=== PATIENT | male | born 1965 | race Caucasian/White ===

== ENCOUNTER → 2016-06-26 | Outpatient (CLI) | payer OTHER ==
[~2016-06-26] MED LIST: ABL/5 PO; ACET325T96 PO; ALUM-30 PO; CARB1SOL8 OTB; CLC100X PO; CYAN500T13 PO; DLSUDL60 PO; FEXO1TAB46 PO; FLUT0.0529 NAE; LOPE-5 PO; MAGNSUS5 PO; MIRT15TA3 PO; MONT1TAB3 PO; MULT-412 PO; NEOMOIN3 TOP; POLY335025 PO; SERT1TAB68 PO; SIMV40TA4 PO; WHEAPOW13 PO; [UNRECOGNIZED DRUG - OTHER] OR; [UNRECOGNIZED DRUG - SUPPLY] TOP
[2016-06-26 18:12] LABS: BASO % 0.4 %; BASO ABS # 0.03 K/uL (0-0.2); COMPLETE YES; IG% 0.3 %; LYMPH % 17.5 %; LYMPH ABS # 1.27 K/uL (1.2-3.4); MEAN CELL VOLUME 97.1 fL (80-100); MEAN CORPUSCULAR HEMOGLOBIN 30.7 pg (25-34); MEAN CORPUSCULAR HGB CONC 31.6 g/dl (32-36); MEAN PLATELET VOLUME 10.9 fL (7.4-10.4); MONO % 5.4 %; NEUT % 75.4 %; PLATELET COUNT 275 K/uL (130-400); RED BLOOD COUNT 4.43 M/uL (4.7-6.1); WHITE BLOOD COUNT 7.26 K/uL (4.8-10.8)
[2016-06-26 18:49] LABS: BLOOD UREA NITROGEN 12 mg/dl (7-18); CARBON DIOXIDE 28 mmol/L (21-32); CHLORIDE 106 mmol/L (98-107); GLUCOSE 106 mg/dl (70-99); POTASSIUM 4.5 mmol/L (3.5-5.1); SODIUM 141 mmol/L (136-145)
[2016-06-26 18:53] LABS: CHOLESTEROL 198 mg/dl (0-200); CHOLESTEROL/HDL RATIO 3.3; HDL CHOLESTEROL 60 mg/dl; LDL CHOLESTEROL CALCULATED 116 mg/dl; TRIGLYCERIDES 112 mg/dl (0-150); VERY LOW DENSITY LIPOPROT CALC 22 mg/dl
== END | disposition home or self-care (01) ==
LOC: C.LABPVFM 15:12
PROVIDERS: ATTEND Nurse Practitioner
DX: E78.5 Hyperlipidemia, unspecified (principal); D53.1 Other megaloblastic anemias, not elsewhere classified

== ENCOUNTER → 2016-07-10 | Outpatient (CLI) | payer OTHER | END | disposition home or self-care (01) | LOC: C.LABBFT 09:57 | PROVIDERS: ATTEND Nurse Practitioner | DX: D53.1 Other megaloblastic anemias, not elsewhere classified (principal) ==

== ENCOUNTER → 2017-07-20 | Outpatient (CLI) | payer OTHER ==
[~2017-07-20] MED LIST changes: +ACET-1693 PO; -ACET325T96 PO
[2017-07-20 17:30] LABS: BASO % 1.1 %; BASO ABS # 0.07 K/uL (0-0.2); EOS % 1.3 %; EOS ABS # 0.08 K/uL (0-0.5); HEMATOCRIT 38.8 % (42-52); HEMOGLOBIN 12.4 g/dL (14.0-18.0); IG# 0.02 K/uL (0.00-0.02); LYMPH % 14.1 %; MEAN CELL VOLUME 91.7 fL (80-100); MEAN CORPUSCULAR HEMOGLOBIN 29.3 pg (25-34); MEAN PLATELET VOLUME 10.5 fL (7.4-10.4); MONO % 8.3 %; MONO ABS # 0.53 K/uL (0.11-0.59); NEUT % 74.9 %; PLATELET COUNT 242 K/uL (130-400); RED CELL DISTRIBUTION WIDTH CV 15.5 % (11.5-14.5); RED CELL DISTRIBUTION WIDTH SD 52.2 fL (36.4-46.3)
[2017-07-20 17:49] LABS: BLOOD UREA NITROGEN 11 mg/dl (7-18); CALCIUM 8.4 mg/dl (8.5-10.1); CARBON DIOXIDE 29 mmol/L (21-32); CHOLESTEROL 169 mg/dl (0-200); CREATININE 1.12 mg/dl (0.60-1.40); GLUCOSE 92 mg/dl (70-99); LDL CHOLESTEROL CALCULATED 94 mg/dl; POTASSIUM 4.2 mmol/L (3.5-5.1); SODIUM 141 mmol/L (136-145)
== END | disposition home or self-care (01) ==
LOC: C.LABPVFM 13:51
PROVIDERS: ATTEND Nurse Practitioner
DX: D53.1 Other megaloblastic anemias, not elsewhere classified (principal); E78.5 Hyperlipidemia, unspecified

== ENCOUNTER 2017-10-15 14:13 | Emergency (ER) | payer OTHER ==
[~2017-10-15] VITALS: Ht 167.6 cm; Wt 100.0 kg
[2017-10-15 14:15] VITALS: TEMP 36.8; Ht 167.6 cm; Wt 100.0 kg
[2017-10-15] MEDS ORDERED: ACET-1693 PO (15:08)
[2017-10-15] MEDS ORDERED: POLY335019 PO (15:08)
[2017-10-15] MEDS ORDERED: WHEAPOW13 PO (15:08)
[2017-10-15] MEDS ORDERED: MULT-506 PO (15:08)
[2017-10-15] MEDS ORDERED: CYAN500T PO (15:08)
[2017-10-15] MEDS ORDERED: MOMLX PO (15:08)
[2017-10-15] MEDS ORDERED: DOCU-94 PO (15:08)
[2017-10-15] MEDS ORDERED: LOPE1TAB25 PO (15:08)
[2017-10-15] MEDS ORDERED: MIRT15TA3 PO (15:08)
[2017-10-15] MEDS ORDERED: MONT1TAB3 PO (15:08)
[2017-10-15] MEDS ORDERED: FLUT0.15 NAE (15:08)
[2017-10-15] MEDS ORDERED: SERT-234 PO (15:08)
[2017-10-15] MEDS ORDERED: EYELPAD2 (15:08)
[2017-10-15] MEDS ORDERED: NEOM-25 TOP (15:08)
[2017-10-15] MEDS ORDERED: ATOR-24 PO (15:08)
[2017-10-15] MEDS ORDERED: CARB1SOL8 OTB (15:08)
[2017-10-15] MEDS ORDERED: DEXT30LI4 PO (15:08)
[2017-10-15] MEDS ORDERED: ALUM1SUS57 PO (15:08)
[2017-10-15] MEDS ORDERED: [UNRECOGNIZED DRUG - CODE] PO (15:08)
[2017-10-15] MEDS ORDERED: ABL/5 PO (15:08)
[2017-10-15] MEDS ORDERED: FEXO1TAB46 PO (15:08)
--- NOTE | 2017-10-15 15:10 | DIAGNOSTIC IMAGING REPORT ---
CHEST AND ABDOMEN 2 VIEWS HISTORY: Generalized abdominal pain. COMPARISON: Abdomen and pelvis CT 10/05/2015. [facility] 05/19/2013. FINDINGS: The lungs are clear. The cardiomediastinal silhouette is within normal limits. There is no pneumoperitoneum or pneumatosis. The bowel gas pattern is unremarkable. No evidence for bowel obstruction. No renal or ureteral calculi. Moderate well-formed stool seen within the colon rectum. This has progressed. IMPRESSION: No acute cardiopulmonary process. No evidence for bowel obstruction. Moderate fecal retention. Electronically signed by: Benjamín Caldwell M.D. 10/15/2017 3:08 PM Dictated Date/Time: 10/15/2017 3:06 PM
[2017-10-15 16:55] LABS: BASO % 0.6 %; BASO ABS # 0.05 K/uL (0-0.2); EOS % 0.7 %; EOS ABS # 0.06 K/uL (0-0.5); HEMATOCRIT 43.2 % (42-52); HEMOGLOBIN 13.7 g/dL (14.0-18.0); IG# 0.02 K/uL (0.00-0.02); LYMPH ABS # 0.99 K/uL (1.2-3.4); MEAN CELL VOLUME 93.1 fL (80-100); MEAN CORPUSCULAR HEMOGLOBIN 29.5 pg (25-34); MEAN CORPUSCULAR HGB CONC 31.7 g/dl (32-36); MEAN PLATELET VOLUME 10.7 fL (7.4-10.4); MONO % 5.7 %; MONO ABS # 0.47 K/uL (0.11-0.59); NEUT % 80.8 %; NEUT ABS # 6.68 K/uL (1.4-6.5); PLATELET COUNT 248 K/uL (130-400); RED CELL DISTRIBUTION WIDTH CV 15.1 % (11.5-14.5); RED CELL DISTRIBUTION WIDTH SD 51.1 fL (36.4-46.3); WHITE BLOOD COUNT 8.27 K/uL (4.8-10.8)
[2017-10-15 17:19] LABS: ALBUMIN 3.6 gm/dl (3.4-5.0); CALCIUM 9.2 mg/dl (8.5-10.1); CREATININE 1.22 mg/dl (0.60-1.40); POTASSIUM 4.3 mmol/L (3.5-5.1); TOTAL PROTEIN 8.1 gm/dl (6.4-8.2)
[2017-10-15 18:25] VITALS: BP 126/81; PULSE 81; O2SAT 98
[2017-10-15] MEDS ORDERED: MAGNESIUM CITRATE 296 ML/BTL PO ONE (18:45)
--- NOTE | 2017-10-16 01:29 | EMERGENCY ROOM VISIT NOTE ---
History First contact with patient: 14:13 Chief Complaint: ABDOMINAL PAIN Stated Complaint: ABDOMINAL PAIN Nursing Triage Summary: patient to ED from [facility] with senior pastor, report intermittent abd pain x2 weeks , hx constipation patient denies pain at time of triage History of Present Illness The patient is a 51 year old male who presents to the Emergency Room with complaints of abdominal pain for the past 2 weeks. The patient is a [facility] patient. His caregiver reports that he has a history of significant constipation. He takes multiple medicines for his constipation. He has been complaining of discomfort for the past few weeks. His pain seemed to escalate today, and they elected to bring the patient to the emergency department for further evaluation. The patient has not spiked a fever. They deny any diarrhea , change in urinary patterns or vomiting. On my exam, the patient denies any belly pain. Review of Systems Review of systems was limited given limited intellectual ability with Down syndrome Past Medical/Surgical History Medical Problems: (1) Down syndrome Family History Unknown Social History Smoking Status: Never Smoker Alcohol Use: none Drug Use: none Marital Status: single Housing Status: other Occupation Status: disabled Current/Historical Medications Scheduled Aripiprazole (Abilify), 5 MG PO DAILY Atorvastatin (Lipitor), 40 MG PO HS Carbamide Peroxide (Otic) (Debrox), 3 DROPS OTB 3XWK Cyanocobalamin (Vitamin B-12), 500 MCG PO DAILY Docusate Sodium (Colace), 200 MG PO AMPM Eyelid Cleansers (Ocusoft Lid Scrub), 1 APPLN UNKNOWN QAM Fexofenadine Hcl (Nelida), 180 MG PO DAILY Fluticasone Propionate (Nasal) (Flonase Allergy Relief), 2 SPRAYS ABHILASH DAILY Loperamide Hcl (Loperamide Hcl), 1 DOSE PO UD Magnesium Hydroxide (Milk of Magnesia), 1 DOSE PO UD Mirtazapine (Remeron), 15 MG PO HS Montelukast Sodium (Singulair), 10 MG PO HS Multivitamin (Multivitamin), 1 TAB PO DAILY Polyethylene Glycol 3350 (Miralax), 17 GM PO DAILY Sertraline (Zoloft), 100 MG PO DAILY Sodium Fluoride (Dental) (Prevident 5000 Plus), 1 APPLN PO BID Wheat Dextrin (Benefiber), 2 TSP PO DAILY Scheduled PRN Acetaminophen Tab (Tylenol), 650 MG PO Q6 PRN for Pain or Fever Alum & Mag Hydrox-Simethicone (Mylanta Maximum Strength 400-400-40 mg/5Ml), 30 ML PO Q4 PRN for UPSET STOMACH/VOMITING Dextromethorphan Polistirex (Delsym), 10 ML PO Q12 PRN for Cough Bgacruif-Hdszsvyyxl-Frgsipxtn (Triple Antibiotic), 1 APPLN TOP BID PRN for INFECTION Physical Exam Vital Signs Date Time Temp Pulse Resp B/P (MAP) Pulse Ox O2 Delivery O2 Flow Rate FiO2 10/15/17 18:25 81 18 126/81 98 Room Air 10/15/17 16:28 91 18 136/77 96 Room Air 10/15/17 14:15 36.8 117 18 175/99 97 Room Air Physical Exam CONSTITUTIONAL: Healthy and well nourished. Patient answers questions with yes or no answers. He does not appear in any acute distress. HEENT: Normocephalic, atraumatic. Pupils equal, round and reactive. No scleral icterus or conjunctival injection/pallor. NECK: Full active range of motion without discomfort. RESPIRATORY: Clear to auscultation bilaterally with no wheezing, crackles, rhonchi or stridor. CARDIOVASCULAR: Regular rate and rhythm with no murmurs, rubs or gallops. GASTROINTESTINAL: Bowel sounds present in all quadrants. The patient initially refused to lay on the bed. With the patient sitting in a chair, he does not have any obvious tenderness to palpation or rigidity. Negative CVA tenderness. MUSCULOSKELETAL: Full range of motion of all joints without discomfort. INTEGUMENTARY: No rash or other significant dermatologic conditions noted. NEUROLOGIC: No focal neurologic deficits noted. Medical Decision & Procedures ER Provider Diagnostic Interpretation: My interpretation of an abdomen obstruction series with a PA chest view does not show any obstructive pattern, free air or basilar lung consolidations. Moderate constipation is noted. Radiologist report is as follows: CHEST AND ABDOMEN 2 VIEWS HISTORY: Generalized abdominal pain. COMPARISON: Abdomen and pelvis CT 10/05/2015. KUB 05/19/2013. FINDINGS: The lungs are clear. The cardiomediastinal silhouette is within normal limits. There is no pneumoperitoneum or pneumatosis. The bowel gas pattern is unremarkable. No evidence for bowel obstruction. No renal or ureteral calculi. Moderate well-formed stool seen within the colon rectum. This has progressed. IMPRESSION: No acute cardiopulmonary process. No evidence for bowel obstruction. Moderate fecal retention. Laboratory Results 10/15/17 16:24 Red Blood Count 4.64, Mean Corpuscular Volume 93.1, Mean Corpuscular Hemoglobin 29.5, Mean Corpuscular Hemoglobin Concent 31.7, Mean Platelet Volume 10.7, Neutrophils (%) (Auto) 80.8, Lymphocytes (%) (Auto) 12.0, Monocytes (%) (Auto) 5.7, Eosinophils (%) (Auto) 0.7, Basophils (%) (Auto) 0.6, Neutrophils # (Auto) 6.68, Lymphocytes # (Auto) 0.99, Monocytes # (Auto) 0.47, Eosinophils # (Auto) 0.06, Basophils # (Auto) 0.05 10/15/17 16:24 Test 10/15/17 16:24 White Blood Count 8.27 K/uL (4.8-10.8) Red Blood Count 4.64 M/uL (4.7-6.1) Hemoglobin 13.7 g/dL (14.0-18.0) Hematocrit 43.2 % (42-52) Mean Corpuscular Volume 93.1 fL (80-100) Mean Corpuscular Hemoglobin 29.5 pg (25-34) Mean Corpuscular Hemoglobin Concent 31.7 g/dl (32-36) Platelet Count 248 K/uL (130-400) Mean Platelet Volume 10.7 fL (7.4-10.4) Neutrophils (%) (Auto) 80.8 % Lymphocytes (%) (Auto) 12.0 % Monocytes (%) (Auto) 5.7 % Eosinophils (%) (Auto) 0.7 % Basophils (%) (Auto) 0.6 % Neutrophils # (Auto) 6.68 K/uL (1.4-6.5) Lymphocytes # (Auto) 0.99 K/uL (1.2-3.4) Monocytes # (Auto) 0.47 K/uL (0.11-0.59) Eosinophils # (Auto) 0.06 K/uL (0-0.5) Basophils # (Auto) 0.05 K/uL (0-0.2) RDW Standard Deviation 51.1 fL (36.4-46.3) RDW Coefficient of Variation 15.1 % (11.5-14.5) Immature Granulocyte % (Auto) 0.2 % Immature Granulocyte # (Auto) 0.02 K/uL (0.00-0.02) Anion Gap 7.0 mmol/L (3-11) Est Creatinine Clear Calc Drug Dose 80.2 ml/min Estimated GFR () 79.6 Estimated GFR (Non- 68.7 BUN/Creatinine Ratio 12.2 (10-20) Calcium Level 9.2 mg/dl (8.5-10.1) Total Bilirubin 0.3 mg/dl (0.2-1) Direct Bilirubin 0.1 mg/dl (0-0.2) Aspartate Amino Transf (AST/SGOT) 21 U/L (15-37) Alanine Aminotransferase (ALT/SGPT) 26 U/L (12-78) Alkaline Phosphatase 110 U/L (45-117) Total Protein 8.1 gm/dl (6.4-8.2) Albumin 3.6 gm/dl (3.4-5.0) Lipase 164 U/L (73-393) The above labs were reviewed and were grossly normal. Medications Administered Medications (Trade) Dose Ordered Sig/[place] Route Start Time Stop Time Status Last Admin Dose Admin Magnesium Citrate (Citrate Of Magnesia Soln) 296 ml NOW ONCE PO 10/15/17 18:45 10/15/17 18:46 DC 10/15/17 18:58 296 ML ED Course Patient history and physical exam were performed. Nurse's notes were reviewed. Vital signs were reviewed. The patient was initially tachycardic, but does not appear in any acute distress. He is afebrile. The patient initially refused to lay on the bed for exam. Initial exam in a seated position did not show any obvious tenderness to palpation of the abdomen. I did recommend x-ray of the abdomen for suspected constipation. X-rays does show moderate fecal retention without any obstructive pattern, free air or acute cardiopulmonary etiologies. After discussing the case with Dr. Mendosa, ED attending physician, we elected to check some labs since the patient was tachycardic. Labs were drawn, reviewed and were normal. The patient denied any pain on reexamination. It is also noted that his heart rate did trend downward while in the emergency department. I did recommend use of magnesium citrate to purge the bowel. I then suggested follow-up with the patient's PCP as he is on multiple medications for constipation. I recommended return to the emergency department for any developing vomiting, fever, rectal bleeding or other concerns. The caregiver voiced understanding of all discharge instructions, and was happy with plan of care. Medical Decision As indicated in previous section, the patient does have a history of constipation, and is on multiple medications. His x-rays does show moderate fecal retention. Laboratory studies are not suggestive of pancreatitis, cholecystitis or hepatitis. X-rays do not show evidence for obstruction or basilar lung consolidations. The patient's abdominal exam, although limited secondary to patient refusal, does not show any significant findings. I do not suspect a surgical abdomen. Medication Reconcilliation Current Medication List: was personally reviewed by me Blood Pressure Screening Patient's blood pressure: Normal blood pressure Impression Primary Impression: Abdominal pain Additional Impression: Constipation Departure Information Dispostion Home / Self-Care Condition FAIR Forms Call Back Authorization, HOME CARE DOCUMENTATION FORM, IMPORTANT VISIT INFORMATION Patient Instructions [facility] Additional Instructions Try magnesium citrate to purge bowel. This will usually cause a bowel movement within 4-6 hours. Follow-up with your family doctor as needed for further constipation management. Return to the emergency department for any progressively worsening pain, vomiting or developing fever. Problem Qualifiers Primary Impression: Abdominal pain Abdominal location: generalized Qualified Codes: R10.84 - Generalized abdominal pain Additional Impression: Constipation Constipation type: unspecified constipation type Qualified Codes: K59.00 - Constipation, unspecified
== END 2017-10-15 18:50 | disposition home or self-care (01) ==
LOC: EDBD 14:13 → C.EDB 14:14
DX: K59.00 Constipation, unspecified (principal); Q90.9 Down syndrome, unspecified; Z79.899 Other long term (current) drug therapy

== ENCOUNTER 2023-07-13 20:43 | Inpatient (IN) ==
--- NOTE | 2023-07-13 21:57 | Emergency Department Note ---
History of Present Illness General Chief complaint: Foot Injury/Pain Stated complaint: L FOOT SWOLLEN Time Seen by Provider: 07/13/23 21:29 History of Present Illness Maximum Pain Intensity: 2 This is a 57-year-old male that presents to the emergency department via private vehicle accompanied by supervisor rice milling with complaints of "left foot swollen". Much of the history is provided by supervisor rice milling at bedside. She notes that the patient has been treated for left toe cellulitis over the past several days. He has been on amoxicillin/clavulanate since July 09 per review of record that is accompanying the patient. Despite this, today it was noted that the patient's left lower extremity began with edema as well as erythema. There was concern therefore prompting arrival here today. He has been compliant with the medication. Patient notes overall minimal discomfort. Current pain 04/11. No calf pain. No fevers or chills. No chest pain or shortness of breath. I did call the patient's guardian which is the patient's sister after obtaining verbal consent from the patient. Phone number [phone]. I spoke with her at 9:43 PM on 07/13/2023. I reviewed plan of care. We are in agreement to proceed. Home Medications Medication Instructions Recorded Confirmed Type aripiprazole 5 mg tablet (Abilify) 5 mg PO PM 11/19/18 07/16/23 History sertraline 100 mg tablet 100 mg PO QAM 11/19/18 07/16/23 History cyanocobalamin (vitamin B-12) 500 500 mcg PO QAM #30 tabs 08/19/19 07/16/23 Rx mcg tablet docusate sodium 100 mg capsule 100 mg PO BID PRN constipation #30 08/19/19 07/16/23 Rx (Colace) caps magnesium hydroxide 400 mg/5 mL 30 ml PO .COMPLEX PRN constipation 08/19/19 07/16/23 Rx oral suspension (Milk of Magnesia) #118 mL carbamide peroxide 6.5 % ear drops 3 drops OTB [id number] 07/04/20 07/16/23 History (Debrox) aluminum-mag hydroxide-simethicone 30 ml PO Q4 PRN antiemetic 04/22/21 07/16/23 History 200 mg-200 mg-20 mg/5 mL oral susp melatonin 3 mg tablet 6 mg PO HS 04/22/21 07/16/23 History mirtazapine 15 mg tablet 15 mg PO HS 04/22/21 07/16/23 History ibuprofen 200 mg tablet (IBU-200) 400 mg (2 x 200 mg) PO Q8H PRN 03/31/22 07/16/23 Rx pain 5 days #20 tabs mineral oil See Rx Instructions miscellaneous 03/31/22 07/16/23 Rx .COMPLEX #1 btl sodium chloride 0.65 % nasal spray 2 spray intranasal Q4H PRN dry 07/31/22 07/16/23 Rx aerosol (Saline Nasal Mist) nasal passages #44 mL acetaminophen 325 mg tablet 650 mg PO PRN PRN pain 09/05/22 07/16/23 History (Tylenol) eyelid cleanser combination 5 1 pad topical DIRECTED 09/05/22 07/16/23 History (OcuSoft Lid Scrub topical pads) ketoconazole 2 % shampoo 1 applic topical DIRECTED PRN 09/05/22 07/16/23 History NEEDED lanolin alcohols-mineral 1 applic topical DAILY 09/05/22 07/16/23 History oil-w.petrolatum-ceresin topical cream (Eucerin topical cream) loperamide 2 mg capsule 2 mg PO Q6H PRN Diarrhea 09/05/22 07/16/23 History (Anti-Diarrheal (loperamide)) calcium carbonate (Antacid Calcium) 215 mg PO BID #60 tabs 09/09/22 07/16/23 Rx cholecalciferol (vitamin D3) 125 125 mcg PO DAILY #90 caps 09/19/22 07/16/23 Rx mcg (5,000 unit) capsule emollient combination no.117 1 applic topical DAILY PRN Itching 09/19/22 07/16/23 History (Eucerin Advanced Repair Hand topical cream) walker with hand brakes and a seat #1 ea 10/29/22 07/10/23 Rx ciclopirox 0.77 % topical cream 1 applic topical BID PRN rash #90 12/23/22 07/16/23 Rx grams sennosides 8.6 mg tablet (Senokot) 8.6 mg PO HS PRN constipation #20 01/12/23 07/16/23 Rx tabs atorvastatin 40 mg tablet 40 mg PO HS #30 tabs 02/05/23 07/16/23 Rx montelukast 10 mg tablet 10 mg PO HS #30 tabs 02/05/23 07/16/23 Rx fluticasone propionate 50 2 spray intranasal QAM #16 grams 02/17/23 07/16/23 Rx mcg/actuation nasal spray,suspension (Flonase Allergy Relief) rewashable large blue chux pad #3 ea 02/20/23 07/10/23 Rx polyethylene glycol 3350 17 17 g PO BID #850 grams 03/04/23 07/16/23 Rx gram/dose oral powder multivitamin (Multiple Vitamins 1 tab PO QAM #30 tabs 04/30/23 07/16/23 Rx tablet) compression socks, large #4 ea 05/06/23 07/10/23 Rx benzonatate 200 mg capsule 200 mg PO BID PRN cough #20 caps 05/26/23 07/16/23 Rx neomycin 3.5 mg-polymyxin 10,000 1 drp ophthalmic (eye) BID #7.5 mL 05/26/23 07/16/23 Rx unit-hydrocort 10 mg/mL eye drop,susp testosterone enanthate 200 mg/mL 1,000 mg IM .BIMONTHLY 05/26/23 07/16/23 History intramuscular syringe dextromethorphan polistirex 30 10 ml PO Q12H PRN Cough 06/19/23 07/16/23 History mg/5 mL oral susp ext.release 12hr (Delsym 12 hour) fluoride (sodium) 1.1 % dental gel 1 applic dental DAILY 06/19/23 07/16/23 History hydrocodone 5 mg-acetaminophen 325 1 tab PO Q8H PRN Pain 06/19/23 07/16/23 History mg tablet fexofenadine 180 mg tablet 180 mg PO QAM #30 tabs 06/26/23 07/16/23 Rx Magic Mouthwash 300 mL mouthwash 5 ml mucous membrane .COMPLEX #300 07/10/23 07/16/23 Rx mL magnesium sulfate (bulk) 100 % See Rx Instructions topical BID 07/10/23 07/16/23 Rx crystals (Epsom Salt) #2,500 grams mupirocin 2 % topical ointment 1 applic EXT TID #22 grams 07/14/23 07/16/23 Rx sulfamethoxazole 800 1 tab PO BID #20 tabs 07/14/23 07/16/23 Rx mg-trimethoprim 160 mg tablet (Bactrim DS) Allergies Allergy/AdvReac Type Severity Reaction Status Date / Time pollen extracts Allergy Intermediate WATERY Verified 07/16/23 16:52 EYES, CONGESTION amantadine AdvReac Unknown Unknown Verified 07/16/23 16:52 fluoxetine [From Prozac] AdvReac Unknown Unknown Verified 07/16/23 16:52 Past Med/Surg History Problem List Cellulitis of left lower extremity (Acute) Choking due to food (regurgitated) Aphthous ulcer of mouth Infected nailbed of toe Ingrown left big toenail Moderate intellectual disabilities Viral URI with cough Blepharitis Localized swelling, mass and lump, left lower limb Edema of left lower extremity (Acute) Rash Hordeolum of right upper eyelid Trisomy 21, Down syndrome (Chronic) Patient will continue with medications for his chronic conditions which are overall stable at this time. No other recommendations at this time. No labs at this visit. Will do labs again in 4 months. 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) Constipation (Chronic) Allergic rhinitis (Chronic) Tinea corporis (Chronic) Groin pain Annual physical exam Vitamin D deficiency Skin irritation Cerumen impaction Abscess of buttock Lipoma of buttock Sebaceous cyst Conjunctivitis Acute sinusitis Neuropathy, lower extremity Calf pain Lower extremity edema Pain of right calf (Acute) Urinary incontinence Osteoporosis Low testosterone Congenital small testis Decreased stamina Knee pain Lumbar degenerative disc disease Compression fracture of T11 vertebra Medical History Colon cancer screening Congenital malformation of eyelid Asthma Vitamin B12 deficiency Adjustment disorder with depressed mood Down syndrome COVID-19 Surgical History History of wisdom tooth extraction No history of previous surgery Family History Other No significant family history Social History Smoking Status: Never smoker Second Hand Exposure: No; Do You Dip or Chew Tobacco: No; Hx Alcohol Use: No Hx Substance Use: No Preferred Language: Romansh Communication Ability: Effective Visual Impairment: No Limitations Hearing Ability: Normal 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 Repairer Required: No Beliefs That Will Affect Care: None marital status: Single Current Living Situation: Personal Care Facility Current Living Situation Comment: skills current occupational status: disabled How many Children do You have: 0 Feels Safe at Home: Yes Childhood Exposure to Second-Hand Smoke: No Diet: regular caffeine: Yes Dental Care, Regularly: Yes Physical Activity Frequency: Does not Exercise Seatbelt Use: always Sunscreen Use: Yes Sexual Activity: has never been active Assistive Devices: None Review of Systems A total of 10 systems reviewed and were otherwise negative Physical Exam Vital Signs Vital Signs - 24 hr 07/13/23 21:10 07/13/23 23:40 Temperature 36.7 C Temperature Source Temporal Artery Scan Pulse Rate 68 Pulse Rate [Finger] 81 Respiratory Rate 20 18 Blood Pressure 162/94 H Blood Pressure [Right Arm] 148/87 H Blood Pressure Mean 116 Blood Pressure Mean [Right Arm] 107 Blood Pressure Position [Right Arm] Sitting Pulse Oximetry 95 97 Oxygen Delivery Method Room Air Room Air Sepsis Recent Fever Within 48 Hours No Sepsis New/Unexplained Change in Mental Status No Sepsis Action Taken by Nursing No Action Required VITAL SIGNS - Vital signs and nursing notes were reviewed. Hypertensive, otherwise stable. GENERAL -57-year-old male appearing his stated age who is in no acute distress. Communicates well with provider and answers questions appropriately. SKIN -left lower extremity with erythema most pronounced at the left first toe with the nailbed of the left first toe having a scabbed appearance with a small amount of yellowish fluid. Erythema then tracks proximally to the dorsum aspect of the foot and pretibial soft tissues anteriorly. Please see photos above. HEAD - NC/AT. EYES - Sclera anicteric. NECK - No nuchal rigidity. LUNGS - Chest wall symmetric without accessory muscle use, intercostals retractions, or central cyanosis. Normal vesicular breath sounds CTA B/L. No wheezes, rales, or rhonchi appreciated. CARDIAC - RRR EXTREMITIES - No clubbing or peripheral cyanosis. Skin as above. Left dorsalis pedis pulse within normal limits. Patient able to plantarflex dorsiflex actively the left foot/ankle without abnormality. Cap refill of all toes within normal limits. +5/5 strength noted in UE/LE bilaterally. NEUROLOGIC -left lower extremity neurovascularly intact without deficit. Sensory intact to light touch throughout all toes and aspects of the left lower extremity. PSYCH -patient is alert, and answers all questions appropriately. Course Administered Medications Discontinued Medications Acetaminophen (Acetaminophen 325 Mg Tab) 650 mg PO Q4H PRN PRN Reason: pain/fever Stop: 08/13/23 01:40 Last Admin: 07/14/23 02:01 Dose: 650 mg Documented By: OMER Aripiprazole (Aripiprazole 5 Mg Tab) 5 mg PO PM JASIEL Stop: 08/13/23 20:59 Last Admin: 07/14/23 20:27 Dose: 5 mg Documented By: ANDREA Atorvastatin Calcium (Atorvastatin 40 Mg Tab) 40 mg PO HS [facility] Stop: 08/13/23 20:59 Last Admin: 07/14/23 20:21 Dose: 40 mg Documented By: ANDREA Calcium Carbonate (Calcium Carbonate 500 Mg Chewable Tab) 500 mg PO BID JASIEL Stop: 08/13/23 08:59 Last Admin: 07/15/23 07:55 Dose: 500 mg Documented By: Admin: 07/14/23 20:21 Dose: 500 mg Documented By: Admin: 07/14/23 07:58 Dose: 500 mg Documented By: JANAY Cyanocobalamin (Cyanocobalamin (B-12) 500 Mcg Tablet) [facility] Stop: 08/13/23 08:59 Last Admin: 07/15/23 07:53 Dose: 500 mcg Documented By: Admin: 07/14/23 10:31 Dose: 500 mcg Documented By: JANAY Fexofenadine HCl (Fexofenadine Hcl 180 Mg Tab) [facility] Stop: 08/13/23 08:59 Last Admin: 07/15/23 07:53 Dose: 180 mg Documented By: Admin: 07/14/23 07:59 Dose: 180 mg Documented By: JANAY Fluticasone Propionate (Fluticasone Propionate Na Spr 16 Gm Btl) 2 sprays [facility]ILASH [facility] Stop: 08/13/23 08:59 Last Admin: 07/15/23 07:54 Dose: 2 sprays Documented By: Admin: 07/14/23 08:00 Dose: 2 sprays Documented By: JANAY Cefepime HCl (Maxipime) 2,000 mg in 20 mls @ 5 mls/min IV NOW STA; Protocol Stop: 07/13/23 22:38 Last Admin: 07/13/23 22:47 Dose: 5 mls/min Documented By: ANIA Vancomycin HCl 1,750 mg/ (Sodium Chloride) 535 mls @ 200 mls/hr IV NOW ONE Stop: 07/14/23 01:15 Last Infusion: 07/14/23 02:19 Dose: Infused Documented By: Admin: 07/13/23 22:51 Dose: 200 mls/hr Documented By: ANIA Cefepime HCl 2,000 mg/ Syringe 20 mls @ 5 mls/min IV Q12H JASIEL; Protocol Stop: 07/21/23 09:59 Last Admin: 07/14/23 22:13 Dose: 5 mls/min Documented By: Admin: 07/14/23 10:31 Dose: 5 mls/min Documented By: JANAY Vancomycin HCl 1,000 mg/ (Sodium Chloride) 270 mls @ 200 mls/hr IV Q12H JASIEL Stop: 07/21/23 07:59 Last Admin: 07/15/23 08:04 Dose: Not Given Documented By: Infusion: 07/14/23 21:45 Dose: Infused Documented By: Admin: 07/14/23 20:21 Dose: 200 mls/hr Documented By: Infusion: 07/14/23 10:31 Dose: Infused Documented By: Infusion: 07/14/23 09:11 Dose: 200 mls/hr Documented By: Infusion: 07/14/23 08:08 Dose: 0 mls/hr Documented By: Admin: 07/14/23 07:53 Dose: 200 mls/hr Documented By: EW Melatonin (Melatonin 3 Mg Tab) 6 mg PO HS JASIEL Stop: 08/13/23 20:59 Last Admin: 07/14/23 20:27 Dose: 6 mg Documented By: CRH Mirtazapine (Mirtazapine Tab 15 Mg Tab) 15 mg PO HS JASIEL Stop: 08/13/23 20:59 Last Admin: 07/14/23 20:26 Dose: 15 mg Documented By: ANDREA Miscellaneous (Order Awaiting Action: Ciclopirox 0.77 % Cream) 1 each N/A QS [facility] Stop: 08/13/23 07:59 Last Admin: 07/15/23 07:55 Dose: Not Given Documented By: Admin: 07/14/23 23:54 Dose: Not Given Documented By: Admin: 07/14/23 16:39 Dose: Not Given Documented By: Admin: 07/14/23 08:00 Dose: Not Given Documented By: JANAY Montelukast Sodium (Montelukast Sodium 10 Mg Tablet) 10 mg PO HS [facility] Stop: 08/13/23 20:59 Last Admin: 07/14/23 20:21 Dose: 10 mg Documented By: ANDREA Multivitamins (Multivitamin Tab) 1 tab PO QAM [facility] Stop: 08/13/23 08:59 Last Admin: 07/15/23 07:54 Dose: 1 tab Documented By: Admin: 07/14/23 07:59 Dose: 1 tab Documented By: JANAY Mupirocin (Mupirocin 2% Oint 22 Gm Tube) 1 appln EXT TID [facility] Stop: 08/13/23 13:59 Last Admin: 07/15/23 07:55 Dose: 1 appln Documented By: Admin: 07/14/23 20:27 Dose: 1 appln Documented By: Admin: 07/14/23 14:39 Dose: 1 appln Documented By: JANAY Polyethylene Glycol (Polyethylene (Miralax) 17 Gm Pack) 17 gm PO BID [facility] Stop: 08/13/23 08:59 Last Admin: 07/15/23 07:53 Dose: 17 gm Documented By: Admin: 07/14/23 20:27 Dose: 17 gm Documented By: Admin: 07/14/23 08:00 Dose: 17 gm Documented By: JANAY Sertraline HCl (Sertraline Hcl 100 Mg Tablet) 100 mg PO QAM [facility] Stop: 08/13/23 08:59 Last Admin: 07/15/23 07:54 Dose: 100 mg Documented By: Admin: 07/14/23 07:59 Dose: 100 mg Documented By: JANAY Trimethoprim/Sulfamethoxazole (Sulfamethoxazole/Trimethoprim Ds 800/160mg Tab) 1 tab PO Q12 [facility] Stop: 07/22/23 08:59 Last Admin: 07/15/23 09:27 Dose: 1 tab Documented By: EW Vitamin D (Cholecalciferol 125 Mcg (5,000 Units) Tab) 125 mcg PO DAILY [facility] Stop: 08/13/23 08:59 Last Admin: 07/15/23 07:54 Dose: 125 mcg Documented By: Admin: 07/14/23 07:58 Dose: 125 mcg Documented By: JANAY Medical Decision Making Laboratory Data 07/15/23 05:40 07/15/23 05:40 Lab Results 07/13/23 Range/Units 21:50 WBC 6.06 (4.8-10.8) K/ul RBC 5.24 (4.70-6.10) M/uL Hgb 15.9 (14.0-18.0) g/dl Hct 47.7 (42.0-52.0) % MCV 91.0 (80.0-100.0) fL MCH 30.3 (25.0-34.0) pg MCHC 33.3 (32.0-36.0) g/dL RDW Std Deviation 53.4 H (36.4-46.3) fL RDW Coeff of Nusrat 15.9 H (11.5-14.5) % Plt Count 183 (130-400) K/uL MPV 10.9 (9.4-12.4) fL Immature Gran % (Auto) 0.3 % Neut % (Auto) 61.0 % Lymph % (Auto) 25.7 % [place] % (Auto) 9.7 % Eos % (Auto) 2.0 % Baso % (Auto) 1.3 % Neut # (Auto) 3.69 (1.40-6.50) K/uL Lymph # (Auto) 1.56 (1.20-3.40) K/uL [place] # (Auto) 0.59 (0.11-0.59) K/uL Eos # (Auto) 0.12 (0.00-0.50) K/uL Baso # (Auto) 0.08 (0.00-0.20) K/uL Immature Gran # (Auto) 0.02 (0.01-0.20) K/uL Sodium 139 (136-145) mmol/L Potassium 3.9 (3.5-5.1) mmol/L Chloride 102 (98-107) mmol/L Carbon Dioxide 31 (21-32) mmol/L Anion Gap 6 (3-11) BUN 14 (6-23) mg/dl Creatinine 1.12 (0.6-1.4) mg/dl Est Cr Clr Drug Dosing 76.4 ml/min Est GFR ( Amer) 84.7 ml/min Est GFR (Non-Af Amer) 73.0 ml/min BUN/Creatinine Ratio 12.5 (10-20) Glucose 123 H (70-99(Fasting)) mg/dl Lactate 0.9 (0.4-2.0) mmol/L Calcium 9.1 (8.6-10.3) mg/dl Total Bilirubin 0.6 (0.2-1.0) mg/dl AST 20 (13-39) U/L ALT 15 (7-52) U/L Alkaline Phosphatase 81 (34-104) U/L Total Protein 7.2 (6.0-8.3) gm/dl Albumin 3.8 (3.4-5.0) gm/dl Globulin 3.4 (2.5-4.0) gm/dl Albumin/Globulin Ratio 1.1 (0.9-2) Procalcitonin 0.02 (0-0.5) ng/ml MDM Narrative Patient was seen and evaluated as above in room D01. Review was performed of triage nursing notes and vital signs. I did review pertinent previous visits and patient history. After obtaining a thorough history and physical examination the above work up was performed. Patient presents to us today for evaluation of left foot swelling in the setting of known infection to the left first toe. On assessment there is evidence of left first toe cellulitis that appears to track proximally through the foot, left ankle and pretibial soft tissues anteriorly. Per supervisor rice milling at bedside this is new as of today in regard to the edema and erythema. Patient is currently on oral amoxicillin/clavulanate. It appears he was started on this on the 10th. The patient is afebrile. He is overall well-appearing. Options of care discussed with patient as well as patient's guardian via phone. We proceeded with IV access, laboratory studies. A left foot x-ray was obtained. Per my interpretation there is no fracture or radiographic evidence of osteomyelitis. Soft tissue edema noted. Formal radiology report will be available in the a.m. Will proceed with broad-spectrum antibiotics. IV cefepime and IV vancomycin ordered. It is felt that the benefit of these medications outweigh risk. Culture of the small amount of drainage from the first toe nailbed was obtained. Blood culture also pending. At this time we will proceed with inpatient management. Case discussed with the hospitalist service. Please refer to further documentation regarding his stay. Low suspicion for DVT however Doppler study ordered by inpatient team which we performed during patient's hospitalization. Case was discussed with the attending physician. In the evaluation and treatment of this patient the following differential diagnoses were entertained: Sepsis, cellulitis, necrotizing fasciitis, DVT, among others. Impression & Plan Cellulitis of left lower extremity, Edema of left lower extremity Discharge Plan Visit Data Chief Complaint: Foot Injury/Pain Stated Complaint: L FOOT SWOLLEN ED Provider: Ole Cagle ED Midlevel Provider: Jasson Jimenez Discharge Problem: Cellulitis of left lower extremity, Edema of left lower extremity Patient Disposition: Admitted As Inpatient Discharge Instructions Interventions: ED Discharge Assessment Last Done: 07/14/23 01:17 Addendum July 17, 2023 02:32 I was consulted by the Advanced Practice Provider and was substantively involved in the patient's visit.This includes aspects of the HPI, MDM, diagnostic interpretations, and disposition/plan. I discussed the case with the FAREED and agree with the findings and plan as documented in FAREED Tony's note.
[2023-07-13 22:26] LABS: Basophils # (auto) 0.08 K/uL (0.00-0.20); Basophils % (auto) 1.3 %; Eosinophils # (auto) 0.12 K/uL (0.00-0.50); Hematocrit (blood only) 47.7 % (42.0-52.0); Hemoglobin 15.9 g/dl (14.0-18.0); Immature Granulocytes # (auto) 0.02 K/uL (0.01-0.20); Immature Granulocytes % (auto) 0.3 %; Lymphocytes # (auto) 1.56 K/uL (1.20-3.40); Lymphocytes % (auto) 25.7 %; Mean Corpuscular Hemoglobin 30.3 pg (25.0-34.0); Mean Corpuscular Hgb Conc 33.3 g/dL (32.0-36.0); Mean Platelet Volume 10.9 fL (9.4-12.4); Monocytes # (auto) 0.59 K/uL (0.11-0.59); Monocytes % (auto) 9.7 %; Neutrophils # (auto) 3.69 K/uL (1.40-6.50); Platelet Count 183 K/uL (130-400); RDW Coefficient of Variation 15.9 % (11.5-14.5); RDW Standard Deviation 53.4 fL (36.4-46.3); Red Blood Count 5.24 M/uL (4.70-6.10); White Blood Count 6.06 K/ul (4.8-10.8)
[2023-07-13 22:29] LABS: Albumin Globulin Ratio 1.1 (0.9-2); Albumin Level 3.8 gm/dl (3.4-5.0); BUN Creatinine Ratio 12.5 (10-20); Bilirubin,Total 0.6 mg/dl (0.2-1.0); Calcium 9.1 mg/dl (8.6-10.3); Creatinine Clr Calc Pharmacy 76.4 ml/min; Est GFR (African American) 84.7 ml/min; Globulin 3.4 gm/dl (2.5-4.0); Potassium 3.9 mmol/L (3.5-5.1); Total Protein 7.2 gm/dl (6.0-8.3)
[2023-07-13] MEDS ORDERED: VANCOMYCIN CONSULT ACTIVE PRN (22:35)
[2023-07-13] MEDS: CEFEPIME 2,000 MG/20 ML VIAL IV STA (22:47)
[2023-07-13] MEDS: VANCOMYCIN HCL 1,750 MG in SODIUM CHLORIDE 0.9% 500 ML IV ONE (22:51)
--- NOTE | 2023-07-13 23:32 | History & Physical Report ---
Date of Service July 13, 2023 Assessment & Plan (1) Cellulitis of left lower extremity: (2) Infected nailbed of toe: (3) Ingrown left big toenail: (4) Moderate intellectual disabilities: (5) Trisomy 21, Down syndrome: Plan Infected left great toe nailbed/left foot and lower limb cellulitis- From the ED received vancomycin 1750 mg IV and cefepime 2 g IV Continue cefepime 2 g IV every 12 hours MRSA swab Follow clinical examination Order venous Doppler left lower extremity to assess for DVT Moderate intellectual disability/trisomy 21 Down syndrome- Continue usual supportive medications History of Present Illness Chief Complaint: The patient is brought to the emergency department by his residential aide due to concerns regarding left foot being swollen for the past few days. The patient is unable to contribute to HPI or review of systems due to his baseline moderate intellectual disability. Primary Care Provider: JAIMEE Thompson The patient is a 57-year-old male with a past medical history including aspiration, moderate intellectual disability, trisomy 21 Down syndrome, hyperlipidemia, depression with anxiety, lower extremity neuropathy, lower extremity edema, lumbar degenerative disc disease, low testosterone and T11 vertebral compression fracture. The patient is brought to the emergency depart ment by his residential aide due to concerns regarding persistent redness and swelling of his left foot. Allergies Allergy/AdvReac Type Severity Reaction Status Date / Time pollen extracts Allergy Intermediate WATERY Verified 07/13/23 23:37 EYES, CONGESTION amantadine AdvReac Unknown Unknown Verified 07/13/23 23:37 fluoxetine [From Prozac] AdvReac Unknown Unknown Verified 07/13/23 23:37 Home Medications Medication Instructions Recorded Confirmed Type aripiprazole 5 mg tablet (Abilify) 5 mg PO PM 11/19/18 07/13/23 History sertraline 100 mg tablet 100 mg PO QAM 11/19/18 07/13/23 History cyanocobalamin (vitamin B-12) 500 500 mcg PO QAM #30 tabs 08/19/19 07/13/23 Rx mcg tablet docusate sodium 100 mg capsule 100 mg PO BID PRN constipation #30 08/19/19 07/13/23 Rx (Colace) caps magnesium hydroxide 400 mg/5 mL 30 ml PO .COMPLEX PRN constipation 08/19/19 07/13/23 Rx oral suspension (Milk of Magnesia) #118 mL carbamide peroxide 6.5 % ear drops 3 drops OTB 3XWK 07/04/20 07/13/23 History (Debrox) aluminum-mag hydroxide-simethicone 30 ml PO Q4 PRN antiemetic 04/22/21 07/13/23 History 200 mg-200 mg-20 mg/5 mL oral susp melatonin 3 mg tablet 6 mg PO HS 04/22/21 07/13/23 History mirtazapine 15 mg tablet 15 mg PO HS 04/22/21 07/13/23 History ibuprofen 200 mg tablet (IBU-200) 400 mg (2 x 200 mg) PO Q8H PRN 03/31/22 07/13/23 Rx pain 5 days #20 tabs mineral oil See Rx Instructions miscellaneous 03/31/22 07/13/23 Rx .COMPLEX #1 btl sodium chloride 0.65 % nasal spray 2 spray intranasal Q4H PRN dry 07/31/22 07/13/23 Rx aerosol (Saline Nasal Mist) nasal passages #44 mL acetaminophen 325 mg tablet 650 mg PO PRN PRN pain 09/05/22 07/13/23 History (Tylenol) eyelid cleanser combination 5 1 pad topical DIRECTED 09/05/22 07/13/23 History (OcuSoft Lid Scrub topical pads) ketoconazole 2 % shampoo 1 applic topical DIRECTED PRN 09/05/22 07/13/23 History NEEDED lanolin alcohols-mineral 1 applic topical DAILY 09/05/22 07/13/23 History oil-w.petrolatum-ceresin topical cream (Eucerin topical cream) loperamide 2 mg capsule 2 mg PO Q6H PRN Diarrhea 09/05/22 07/13/23 History (Anti-Diarrheal (loperamide)) vitamin A and D 1 applic topical PRN PRN Rash 09/05/22 07/13/23 History calcium carbonate (Antacid Calcium) 215 mg PO BID #60 tabs 09/09/22 07/13/23 Rx cholecalciferol (vitamin D3) 125 125 mcg PO DAILY #90 caps 09/19/22 07/13/23 Rx mcg (5,000 unit) capsule emollient combination no.117 1 applic topical DAILY PRN Itching 09/19/22 07/13/23 History (Eucerin Advanced Repair Hand topical cream) walker with hand brakes and a seat #1 ea 10/29/22 07/10/23 Rx ciclopirox 0.77 % topical cream 1 applic topical BID PRN rash #90 12/23/22 07/13/23 Rx grams sennosides 8.6 mg tablet (Senokot) 8.6 mg PO HS PRN constipation #20 01/12/23 07/13/23 Rx tabs atorvastatin 40 mg tablet 40 mg PO HS #30 tabs 02/05/23 07/13/23 Rx montelukast 10 mg tablet 10 mg PO HS #30 tabs 02/05/23 07/13/23 Rx fluticasone propionate 50 2 spray intranasal QAM #16 grams 02/17/23 07/13/23 Rx mcg/actuation nasal spray,suspension (Flonase Allergy Relief) rewashable large blue chux pad #3 ea 02/20/23 07/10/23 Rx polyethylene glycol 3350 17 17 g PO BID #850 grams 03/04/23 07/13/23 Rx gram/dose oral powder multivitamin (Multiple Vitamins 1 tab PO QAM #30 tabs 04/30/23 07/13/23 Rx tablet) compression socks, large #4 ea 05/06/23 07/10/23 Rx benzonatate 200 mg capsule 200 mg PO BID PRN cough #20 caps 05/26/23 07/13/23 Rx neomycin 3.5 mg-polymyxin 10,000 1 drp ophthalmic (eye) BID #7.5 mL 05/26/23 07/13/23 Rx unit-hydrocort 10 mg/mL eye drop,susp testosterone enanthate 200 mg/mL 1,000 mg IM .BIMONTHLY 05/26/23 07/13/23 History intramuscular syringe dextromethorphan polistirex 30 10 ml PO Q12H PRN Cough 06/19/23 07/13/23 History mg/5 mL oral susp ext.release 12hr (Delsym 12 hour) fluoride (sodium) 1.1 % dental gel 1 applic dental DAILY 06/19/23 07/13/23 History hydrocodone 5 mg-acetaminophen 325 1 tab PO Q8H PRN Pain 06/19/23 07/13/23 History mg tablet fexofenadine 180 mg tablet 180 mg PO QAM #30 tabs 06/26/23 07/13/23 Rx Magic Mouthwash 300 mL mouthwash 5 ml mucous membrane .COMPLEX #300 07/10/23 07/13/23 Rx mL amoxicillin 500 mg-potassium 1 tab PO BID #14 tabs 07/10/23 07/13/23 Rx clavulanate 125 mg tablet (Augmentin) magnesium sulfate (bulk) 100 % See Rx Instructions topical BID 07/10/23 07/13/23 Rx crystals (Epsom Salt) #2,500 grams Past Med/Surg History Problem List (Updated 07/14/23 @ 01:01 by Jasson Jimenez PA-C) Cellulitis of left lower extremity (Acute) Choking due to food (regurgitated) Aphthous ulcer of mouth Infected nailbed of toe Ingrown left big toenail Moderate intellectual disabilities Viral URI with cough Blepharitis Localized swelling, mass and lump, left lower limb Edema of left lower extremity (Acute) Rash Hordeolum of right upper eyelid Trisomy 21, Down syndrome (Chronic) Patient will continue with medications for his chronic conditions which are overall stable at this time. No other recommendations at this time. No labs at this visit. Will do labs again in 4 months. 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) Constipation (Chronic) Allergic rhinitis (Chronic) Tinea corporis (Chronic) Groin pain Annual physical exam Vitamin D deficiency Skin irritation Cerumen impaction Abscess of buttock Lipoma of buttock Sebaceous cyst Conjunctivitis Acute sinusitis Neuropathy, lower extremity Calf pain Lower extremity edema Pain of right calf (Acute) Urinary incontinence Osteoporosis Low testosterone Congenital small testis Decreased stamina Knee pain Lumbar degenerative disc disease Compression fracture of T11 vertebra Medical History Colon cancer screening Congenital malformation of eyelid Asthma Vitamin B12 deficiency Adjustment disorder with depressed mood Down syndrome COVID-19 Compression fracture of T11 vertebra Lumbar degenerative disc disease Surgical History History of wisdom tooth extraction No history of previous surgery Family History Other No significant family history Social History Smoking Status: Never smoker Second Hand Exposure: No; Do You Dip or Chew Tobacco: No; Hx Alcohol Use: No Hx Substance Use: No Preferred Language: Danish Communication Ability: Impaired Visual Impairment: No Limitations Hearing Ability: Normal Top Lift Cutter Required: No Beliefs That Will Affect Care: None marital status: Single Current Living Situation: Personal Care Facility Current Living Situation Comment: skills current occupational status: disabled How many Children do You have: 0 Feels Safe at Home: Yes Safety Concerns: Feels Safe At This Time Childhood Exposure to Second-Hand Smoke: No Diet: regular caffeine: Yes Dental Care, Regularly: Yes Physical Activity Frequency: Does not Exercise Seatbelt Use: always Sunscreen Use: Yes Sexual Activity: has never been active Review of Systems Review of Systems: Patient is unable to contribute to HPI or review of systems due to moderate intellectual disability, and information is provided by residential aide and review of notes ED. Physical Exam Physical Exam: The patient is awake and alert, Down syndrome features, sitting upright in bed and in no acute distress. HEENT--PERRL, EOMI, mucous membranes and oropharynx normal Neck--supple. No JVD. No bruits. Thyroid normal, trachea midline, no adenopathy. Heart--normal S1 and S2. No murmurs, rubs or gallops. Lungs--clear bilaterally, no respiratory distress, no accessory muscle use. Abdomen--normal bowel sounds and soft. Nontender. Nondistended, no hernias or masses, no organomegaly. Extremities--right lower extremity is normal. Left lower extremity with mild to moderate erythema, warmth and swelling involving dorsum of foot and ankle. Left great toe with nail removed and bed infected Dermatologic--normal except for above Neurologic--cranial nerves II through XII grossly intact. Rheumatologic--normal range of motion. Psychiatric--flat affect. Results & Data Results & Data Vital Signs (Past 12 Hours) Vital Signs Temp Pulse Resp BP Pulse Ox O2 Del Method 07/13/23 21:10 36.7 C 68 20 162/94 H 95 Room Air Laboratory Results Laboratory Results WBC 6.06 K/ul (4.8-10.8) 07/13/23 21:50 RBC 5.24 M/uL (4.70-6.10) 07/13/23 21:50 Hgb 15.9 g/dl (14.0-18.0) 07/13/23 21:50 Hct 47.7 % (42.0-52.0) 07/13/23 21:50 MCV 91.0 fL (80.0-100.0) 07/13/23 21:50 MCH 30.3 pg (25.0-34.0) 07/13/23 21:50 MCHC 33.3 g/dL (32.0-36.0) 07/13/23 21:50 RDW Std Deviation 53.4 fL (36.4-46.3) H 07/13/23 21:50 RDW Coeff of Nusrat 15.9 % (11.5-14.5) H 07/13/23 21:50 Plt Count 183 K/uL (130-400) 07/13/23 21:50 MPV 10.9 fL (9.4-12.4) 07/13/23 21:50 Immature Gran % (Auto) 0.3 % 07/13/23 21:50 Neut % (Auto) 61.0 % 07/13/23 21:50 Lymph % (Auto) 25.7 % 07/13/23 21:50 [place] % (Auto) 9.7 % 07/13/23 21:50 Eos % (Auto) 2.0 % 07/13/23 21:50 Baso % (Auto) 1.3 % 07/13/23 21:50 Neut # (Auto) 3.69 K/uL (1.40-6.50) 07/13/23 21:50 Lymph # (Auto) 1.56 K/uL (1.20-3.40) 07/13/23 21:50 [place] # (Auto) 0.59 K/uL (0.11-0.59) 07/13/23 21:50 Eos # (Auto) 0.12 K/uL (0.00-0.50) 07/13/23 21:50 Baso # (Auto) 0.08 K/uL (0.00-0.20) 07/13/23 21:50 Immature Gran # (Auto) 0.02 K/uL (0.01-0.20) 07/13/23 21:50 Sodium 139 mmol/L (136-145) 07/13/23 21:50 Potassium 3.9 mmol/L (3.5-5.1) 07/13/23 21:50 Chloride 102 mmol/L (98-107) 07/13/23 21:50 Carbon Dioxide 31 mmol/L (21-32) 07/13/23 21:50 Anion Gap 6 (3-11) 07/13/23 21:50 BUN 14 mg/dl (6-23) 07/13/23 21:50 Creatinine 1.12 mg/dl (0.6-1.4) 07/13/23 21:50 Est Cr Clr Drug Dosing 76.4 ml/min 07/13/23 21:50 Est GFR ( Amer) 84.7 ml/min 07/13/23 21:50 Est GFR (Non-Af Amer) 73.0 ml/min 07/13/23 21:50 BUN/Creatinine Ratio 12.5 (10-20) 07/13/23 21:50 Glucose 123 mg/dl (70-99(Fasting)) H 07/13/23 21:50 Lactate 0.9 mmol/L (0.4-2.0) 07/13/23 21:50 Calcium 9.1 mg/dl (8.6-10.3) 07/13/23 21:50 Total Bilirubin 0.6 mg/dl (0.2-1.0) 07/13/23 21:50 AST 20 U/L (13-39) 07/13/23 21:50 ALT 15 U/L (7-52) 07/13/23 21:50 Alkaline Phosphatase 81 U/L (34-104) 07/13/23 21:50 Total Protein 7.2 gm/dl (6.0-8.3) 07/13/23 21:50 Albumin 3.8 gm/dl (3.4-5.0) 07/13/23 21:50 Globulin 3.4 gm/dl (2.5-4.0) 07/13/23 21:50 Albumin/Globulin Ratio 1.1 (0.9-2) 07/13/23 21:50 Procalcitonin 0.02 ng/ml (0-0.5) 07/13/23 21:50 Code Status & VTE Plan Code Status full code VTE Prophylaxis Plan VTE Prophylaxis will be ordered: Yes PG Care Time/CCT Total # of Minutes Spent Total Time Spent with Patient: Total time spent is greater than 50% in coordination of care (as documented) at patient's floor/unit and/or counseling patient: Coding Level of Care Code 96629 INT INP/OBS CARE 2/55MIN Diagnoses Cellulitis of left lower extremity L03.116 Infection of nail bed of toe of left foot L03.032 Laterality: left Ingrown left big toenail L60.0 Moderate intellectual disabilities F71 Trisomy 21, Down syndrome Q90.9 (2) Infected nailbed of toe Laterality: left Qualified Code(s): L03.032 - Cellulitis of left toe
[2023-07-14] MEDS ORDERED: VANCOMYCIN CONSULT ACTIVE PRN (01:41)
[2023-07-14] MEDS ORDERED: ONDANSETRON INJ 2 MG/ML 2 ML VIAL IV PRN (01:41)
[2023-07-14] MEDS: ACETAMINOPHEN 325 MG TAB PO PRN (02:01)
[2023-07-14] MEDS ORDERED: MAGNESIUM HYDROXIDE SUSP 30 ML UDC PO PRN (03:52)
[2023-07-14] MEDS ORDERED: BENZONATATE 100 MG CAPSULE PO PRN (03:52)
[2023-07-14] MEDS ORDERED: DOCUSATE SODIUM 100 MG CAP PO PRN (03:52)
[2023-07-14] MEDS ORDERED: SENNA 8.6 MG TAB PO PRN (03:52)
[2023-07-14] MEDS ORDERED: HYDROCODONE/ACETAMOPHEN 5/325MG TAB PO PRN (03:52)
[2023-07-14] MEDS ORDERED: ALUMINUM/MAGNESIUM/SIMETH (MAALOX MAX) 30 ML UDC PO PRN (04:25)
[2023-07-14] MEDS ORDERED: DEXTROMETHORPHAN POLYMR COMPLX 60 MG/10 ML UDP PO PRN (04:27)
[2023-07-14 06:43] LABS: Basophils # (auto) 0.05 K/uL (0.00-0.20); Basophils % (auto) 0.8 %; Eosinophils # (auto) 0.08 K/uL (0.00-0.50); Eosinophils % (auto) 1.3 %; Hematocrit (blood only) 43.9 % (42.0-52.0); Hemoglobin 14.1 g/dl (14.0-18.0); Immature Granulocytes # (auto) 0.03 K/uL (0.01-0.20); Immature Granulocytes % (auto) 0.5 %; Lymphocytes # (auto) 1.19 K/uL (1.20-3.40); Lymphocytes % (auto) 19.8 %; Mean Corpuscular Hemoglobin 29.1 pg (25.0-34.0); Mean Corpuscular Hgb Conc 32.1 g/dL (32.0-36.0); Mean Corpuscular Volume 90.7 fL (80.0-100.0); Mean Platelet Volume 11.2 fL (9.4-12.4); Monocytes # (auto) 0.56 K/uL (0.11-0.59); Monocytes % (auto) 9.3 %; Neutrophils # (auto) 4.09 K/uL (1.40-6.50); Neutrophils % (auto) 68.3 %; Platelet Count 155 K/uL (130-400); RDW Coefficient of Variation 15.9 % (11.5-14.5); RDW Standard Deviation 53.3 fL (36.4-46.3); Red Blood Count 4.84 M/uL (4.70-6.10)
[2023-07-14 07:11] LABS: Albumin Level 3.4 gm/dl (3.4-5.0); BUN Creatinine Ratio 11.7 (10-20); Calcium 8.3 mg/dl (8.6-10.3); Est GFR (African American) 104.6 ml/min; Est GFR (Non-African American) 90.3 ml/min; Magnesium 1.9 mg/dl (1.7-2.4); Phosphorus 3.5 mg/dl (2.5-4.9)
--- NOTE | 2023-07-14 07:28 | XRay Report ---
XR foot LT min 3V routine HISTORY: 57 years-old Male L foot edema, L 1st toe infected acute left foot pain COMPARISON: None TECHNIQUE: 3 views of the left foot FINDINGS: Diffuse soft tissue swelling. No acute fracture, dislocation, or opaque foreign body or osseous erosi on. IMPRESSION: Soft tissue swelling without acute osseous abnormality. ACT 112: Negative or not required by law. The above report was generated using voice recognition software. It may contain grammatical, syntax o r spelling errors. Electronically signed by: Marco Winter M.D. 07/14/2023 7:27 AM
[2023-07-14] MEDS: VANCOMYCIN HCL 1,000 MG in SODIUM CHLORIDE 0.9% 250 ML IV SCH (07:53)
[2023-07-14] MEDS: CALCIUM CARBONATE 500 MG CHEWABLE TAB PO SCH (07:58)
[2023-07-14] MEDS: CHOLECALCIFEROL 125 MCG (5,000 UNITS) TAB PO SCH (07:58)
[2023-07-14] MEDS: MULTIVITAMIN TAB PO SCH (07:59)
[2023-07-14] MEDS: SERTRALINE HCL 100 MG TABLET PO SCH (07:59)
[2023-07-14] MEDS: FEXOFENADINE HCL 180 MG TAB PO SCH (07:59)
[2023-07-14] MEDS: CYANOCOBALAMIN (B-12) 500 MCG TABLET PO SCH (07:59)
--- NOTE | 2023-07-14 07:59 | Hospitalist Progress Note ---
Date of Service July 14, 2023 Assessment & Plan (1) Cellulitis of left lower extremity: Plan: Infected left great toe nailbed/left foot and lower limb cellulitis- -->Of note, "Nikhil Bonilla reported his socks have been wet for the past week, likely from ongoing drainage s/p Vanco/Cefepime in ER Cx from toe pending from ER - GS with no WBC seen, no organisms seen. Cx pending -- follow Blood cultures pending Continues on Vanco, Cefepime IV. MRSA nares negative Venous doppler NEGATIVE for DVT Xray with soft tissue swelling without acute osseous abnormality Patient did have first toenail removed about a week ago by podiatry/provider in [place] -- see note in system. Redness appears improved, WBC stable and continues on abx as above. Appears infected nail bed likely contributing to the cellulitis and podiatry consult placed while inpatient. Defer additional imaging at this time until eval by podiatry Monitor labs/exam in AM, appreciate assistance/recs from podiatry (2) Infected nailbed of toe: Plan: as above, podiatry consult placed (3) Ingrown left big toenail: Plan: s/p avulsion in the past week in [place] as above (4) Moderate intellectual disabilities: Plan: Moderate intellectual disability/trisomy 21 Down syndrome- Continue usual supportive medications family in room for support, mood appears stable at present time (5) Trisomy 21, Down syndrome: Plan continued inpatient stay, podiatry consulted. continue IV abx/monitor cultures. From [employer] family updated in room/via phone -- brother in law/sister from [facility]. Updated other sister Nuria by phone. discussed if no intervention/further imaging warranted once seen by podiatry if improving on exam in AM could consider dc on PO abx and outpatient follow up Admission and Anticipated Discharge Date Admission Date: July 13, 2023 Supervising Physician Co-Signing Physician Notes The patient was not seen by me. The chart was reviewed. Case discussed with BRI Martinez. Agree with assessment and plan Subjective Evaluated this morning, brother in law in room (also updated sister and other sister by phone). Patient sitting up in bed. Denies having had trauma to area but did have his toenail removed about a week ago. Per sister, occurred about a week ago RN from [facility] arranged and believes somewhere in [place] that is affiliated locally - will have them check. No fever/chills, pain controlled. Picture obtained for comparison per patient's ok. Discussed will consult podiatry for eval, patient did endorse his socks have been wet for the past week, does have some serous drainage, will obtain jackson ection if more occurs. Questions/concerns addressed at this time. Physical Exam Physical Exam: General 57yo male, intellectual disability/downs at baseline, brother in law in room (sister updated in [place]) HEENT: trachea midline, MM slightly dry Resp: even/unlabored, no w/c/r, on room air CV: RRR, no significant m/r/g, no pitting edema/calf tenderness (see LLE skin exam), pulses present GI: +BS, soft/NT Neuro/psych: alert to person/place, at baseline with family in room cooperative with exam, following commands as able/answering questions appropriately Skin: LLE with erythema/edema from great toe up into the foot, some clear/serous drainage from great toe/hallux, prior avulsion noted/infected nail bed?, +tenderness/warmth Results & Data Results & Data Vital Signs (Past 12 Hours) Vital Signs Temp Pulse Pulse Resp BP BP Pulse Ox 07/14/23 07:17 36.6 C 66 16 145/89 H 94 07/14/23 01:43 36.5 C 83 16 149/94 H 97 07/14/23 01:30 36.5 C 83 16 149/94 H 97 07/14/23 01:17 07/13/23 23:40 81 18 148/87 H 97 07/13/23 21:10 36.7 C 68 20 162/94 H 95 O2 Del Method 07/14/23 07:17 Room Air 07/14/23 01:43 Room Air 07/14/23 01:30 Room Air 07/14/23 01:17 Room Air 07/13/23 23:40 Room Air 07/13/23 21:10 Room Air Laboratory Results 07/14/23 07/13/23 Range/Units 06:02 21:50 WBC 6.00 6.06 (4.8-10.8) K/ul RBC 4.84 5.24 (4.70-6.10) M/uL Hgb 14.1 15.9 (14.0-18.0) g/dl Hct 43.9 47.7 (42.0-52.0) % MCV 90.7 91.0 (80.0-100.0) fL MCH 29.1 30.3 (25.0-34.0) pg MCHC 32.1 33.3 (32.0-36.0) g/dL RDW Std Deviation 53.3 H 53.4 H (36.4-46.3) fL RDW Coeff of Nusrat 15.9 H 15.9 H (11.5-14.5) % Plt Count 155 183 (130-400) K/uL MPV 11.2 10.9 (9.4-12.4) fL Immature Gran % (Auto) 0.5 0.3 % Neut % (Auto) 68.3 61.0 % Lymph % (Auto) 19.8 25.7 % [place] % (Auto) 9.3 9.7 % Eos % (Auto) 1.3 2.0 % Baso % (Auto) 0.8 1.3 % Neut # (Auto) 4.09 3.69 (1.40-6.50) K/uL Lymph # (Auto) 1.19 L 1.56 (1.20-3.40) K/uL [place] # (Auto) 0.56 0.59 (0.11-0.59) K/uL Eos # (Auto) 0.08 0.12 (0.00-0.50) K/uL Baso # (Auto) 0.05 0.08 (0.00-0.20) K/uL Immature Gran # (Auto) 0.03 0.02 (0.01-0.20) K/uL Sodium 139 139 (136-145) mmol/L Potassium 4.0 3.9 (3.5-5.1) mmol/L Chloride 106 102 (98-107) mmol/L Carbon Dioxide 26 31 (21-32) mmol/L Anion Gap 7 6 (3-11) BUN 11 14 (6-23) mg/dl Creatinine 0.94 1.12 (0.6-1.4) mg/dl Est Cr Clr Drug Dosing 91.0 76.4 ml/min Est GFR ( Amer) 104.6 84.7 ml/min Est GFR (Non-Af Amer) 90.3 73.0 ml/min BUN/Creatinine Ratio 11.7 12.5 (10-20) Glucose 109 H 123 H (70-99(Fasting)) mg/dl Lactate 0.9 (0.4-2.0) mmol/L Calcium 8.3 L 9.1 (8.6-10.3) mg/dl Phosphorus 3.5 (2.5-4.9) mg/dl Magnesium 1.9 (1.7-2.4) mg/dl Total Bilirubin 0.6 (0.2-1.0) mg/dl AST 20 (13-39) U/L ALT 15 (7-52) U/L Alkaline Phosphatase 81 (34-104) U/L Total Protein 7.2 (6.0-8.3) gm/dl Albumin 3.4 3.8 (3.4-5.0) gm/dl Globulin 3.4 (2.5-4.0) gm/dl Albumin/Globulin Ratio 1.1 (0.9-2) Procalcitonin 0.02 (0-0.5) ng/ml Diagnostic Findings Foot X-Ray 07/13/23 21:47 XR foot LT min 3V routine HISTORY: 57 years-old Male L foot edema, L 1st toe infected acute left foot pain COMPARISON: None TECHNIQUE: 3 views of the left foot FINDINGS: Diffuse soft tissue swelling. No acute fracture, dislocation, or opaque foreign body or osseous erosion. IMPRESSION: Soft tissue swelling without acute osseous abnormality. ACT 112: Negative or not required by law. The above report was generated using voice recognition software. It may contain grammatical, syntax or spelling errors. Electronically signed by: Marco Winter M.D. 07/14/2023 7:27 AM Venous Doppler Study 07/14/23 00:00 LEFT LOWER EXTREMITY VENOUS DOPPLER HISTORY: Acute pain and swelling in the left lower extremity swelling LLE COMPARISON STUDY: None. FINDINGS: There is normal compressibility, flow, and augmentation within the left lower extremity deep venous system. Subcutaneous edema limits evaluation of the lower leg veins. Nonspecific inguinal chain lymph nodes measure up to 3.8 x 1.1 x 2.7 cm. This is likely benign. IMPRESSION: No DVT within the left lower extremity. ACT 112: Negative or not required by law. Electronically signed by: Marco Winter M.D. 07/14/2023 9:08 AM PG Care Time/CCT Total # of Minutes Spent Total Time Spent with Patient: Total time spent is greater than 50% in coordination of care (as documented) at patient's floor/unit and/or counseling patient: Coding Level of Care Code 93904 SUB INP/OBS CARE 3/50MIN Diagnoses Cellulitis of left lower extremity L03.116 Infection of nail bed of toe of left foot L03.032 Laterality: left Ingrown left big toenail L60.0 Moderate intellectual disabilities F71 Trisomy 21, Down syndrome Q90.9 (2) Infected nailbed of toe Laterality: left Qualified Code(s): L03.032 - Cellulitis of left toe
[2023-07-14] MEDS ORDERED: VANCOMYCIN HCL 1,250 MG in SODIUM CHLORIDE 0.9% 500 ML IV SCH (08:00)
[2023-07-14] MEDS: POLYETHYLENE (MIRALAX) 17 GM PACK PO SCH (08:00)
[2023-07-14] MEDS: FLUTICASONE PROPIONATE NA SPR 16 GM BTL NAE SCH (08:00)
--- NOTE | 2023-07-14 09:09 | Ultrasound Report ---
LEFT LOWER EXTREMITY VENOUS DOPPLER HISTORY: Acute pain and swelling in the left lower extremity swelling LLE COMPARISON STUDY: None. FINDINGS: There is normal compressibility, flow, and augmentation within the left lower extremity rafa p venous system. Subcutaneous edema limits evaluation of the lower leg veins. Nonspecific inguinal ch ain lymph nodes measure up to 3.8 x 1.1 x 2.7 cm. This is likely benign. IMPRESSION: No DVT within the left lower extremity. ACT 112: Negative or not required by law. Electronically signed by: Marco Winter M.D. 07/14/2023 9:08 AM
--- NOTE | 2023-07-14 10:00 | Pharmacy Report ---
Pharmacy PK ABX Note - Date of Service July 14, 2023 - Assessment and Plan Assessment 57 year old M receiving vancomycin + cefepime for treatment of left great toenail bed infection and lower extremity cellulitis s/p recent toenail removal about one week ago. Pertinent microbiologic data includes: * BC x 2 pending * L great toe culture pending Plan Vancomycin * Loading dose: 1750 mg IV x 1 * Maintenance dose: 1000 mg IV every 12 hours * Regimen is predicted to achieve target AUC/YOLANDA of 400-600 mg/L.hr * predicted AUC of 468 at steady state * Random level ordered for: 07/14 with AM labs Pharmacy will continue to follow and will adjust dose/frequency as necessary. Thank you. Pharmacy has transitioned to AUC monitoring for vancomycin. AUC/YOLANDA is the preferred PK/PD target and is associated with decreased risk of nephrotoxicity compared to traditional trough targets.
[2023-07-14] MEDS: CEFEPIME 2,000 MG in SYRINGE 0 ML IV SCH (10:31)
--- NOTE | 2023-07-14 14:15 | Podiatry Consultation ---
Date of Consultation July 14, 2023 Assessment & Plan (1) Cellulitis of left lower extremity: (2) Ingrown left big toenail: (3) Edema of left lower extremity: Plan Patient seen at bedside. Chart reviewed. His left hallux appearance is consistent with his recent phenol matrixectomy. His left lower extremity, in general, is more consistent with chronic arterial insufficiency rather than any acute cellulitis. There is no significant acute erythema, no local calor, no pain other than on palpation of the chemically burnt hallux nailbed. He should benefit short-term from topical antibiotic ointment, consider mupirocin, and likely a short course of oral antibiotics to definitively treat any potential underlying cellulitis. This could be Augmentin or Keflex. He should be able to be discharged home in the next day or 2, especially if this was his major presenting concern. He should still seek follow-up with his outpatient podiatry team for definitive follow-up. We are happy to help with this, as well, if he prefers to stick with our group. Thank you for the consult, we are happy to help out, as needed. History of Present Illness Reason for Consultation: Left foot cellulitis Attending Physician: Robles Salvador MD History of Present Illness Patient seen at bedside. He states that he is feeling well with no systemic symptoms of infection at this time. He states that he has had left great toe pain since developing an ingrown toenail that was then permanently removed in an outpatient procedure a few weeks ago. Since that time, he has noticed increasing swelling and redness to the left lower extremity. He is an uncertain historian and states that he did not have significant pain or any nausea, vomiting, fevers, or chills. It was mostly the redness and swelling that brought him in the hospital. Since being here, he has obtained imaging of the foot and his veins over all. He states that he is feeling better, largely. Allergies Allergy/AdvReac Type Severity Reaction Status Date / Time pollen extracts Allergy Intermediate WATERY Verified 07/13/23 23:37 EYES, CONGESTION amantadine AdvReac Unknown Unknown Verified 07/13/23 23:37 fluoxetine [From Prozac] AdvReac Unknown Unknown Verified 07/13/23 23:37 Home Medications Medication Instructions Recorded Confirmed Type aripiprazole 5 mg tablet (Abilify) 5 mg PO PM 11/19/18 07/13/23 History sertraline 100 mg tablet 100 mg PO QAM 11/19/18 07/13/23 History cyanocobalamin (vitamin B-12) 500 500 mcg PO QAM #30 tabs 08/19/19 07/13/23 Rx mcg tablet docusate sodium 100 mg capsule 100 mg PO BID PRN constipation #30 08/19/19 07/13/23 Rx (Colace) caps magnesium hydroxide 400 mg/5 mL 30 ml PO .COMPLEX PRN constipation 08/19/19 07/13/23 Rx oral suspension (Milk of Magnesia) #118 mL carbamide peroxide 6.5 % ear drops 3 drops OTB 3XWK 07/04/20 07/13/23 History (Debrox) aluminum-mag hydroxide-simethicone 30 ml PO Q4 PRN antiemetic 04/22/21 07/13/23 History 200 mg-200 mg-20 mg/5 mL oral susp melatonin 3 mg tablet 6 mg PO HS 04/22/21 07/13/23 History mirtazapine 15 mg tablet 15 mg PO HS 04/22/21 07/13/23 History ibuprofen 200 mg tablet (IBU-200) 400 mg (2 x 200 mg) PO Q8H PRN 03/31/22 07/13/23 Rx pain 5 days #20 tabs mineral oil See Rx Instructions miscellaneous 03/31/22 07/13/23 Rx .COMPLEX #1 btl sodium chloride 0.65 % nasal spray 2 spray intranasal Q4H PRN dry 07/31/22 07/13/23 Rx aerosol (Saline Nasal Mist) nasal passages #44 mL acetaminophen 325 mg tablet 650 mg PO PRN PRN pain 09/05/22 07/13/23 History (Tylenol) eyelid cleanser combination 5 1 pad topical DIRECTED 09/05/22 07/13/23 History (OcuSoft Lid Scrub topical pads) ketoconazole 2 % shampoo 1 applic topical DIRECTED PRN 09/05/22 07/13/23 History NEEDED lanolin alcohols-mineral 1 applic topical DAILY 09/05/22 07/13/23 History oil-w.petrolatum-ceresin topical cream (Eucerin topical cream) loperamide 2 mg capsule 2 mg PO Q6H PRN Diarrhea 09/05/22 07/13/23 History (Anti-Diarrheal (loperamide)) vitamin A and D 1 applic topical PRN PRN Rash 09/05/22 07/13/23 History calcium carbonate (Antacid Calcium) 215 mg PO BID #60 tabs 09/09/22 07/13/23 Rx cholecalciferol (vitamin D3) 125 125 mcg PO DAILY #90 caps 09/19/22 07/13/23 Rx mcg (5,000 unit) capsule emollient combination no.117 1 applic topical DAILY PRN Itching 09/19/22 07/13/23 History (Eucerin Advanced Repair Hand topical cream) walker with hand brakes and a seat #1 ea 10/29/22 07/10/23 Rx ciclopirox 0.77 % topical cream 1 applic topical BID PRN rash #90 12/23/22 07/13/23 Rx grams sennosides 8.6 mg tablet (Senokot) 8.6 mg PO HS PRN constipation #20 01/12/23 07/13/23 Rx tabs atorvastatin 40 mg tablet 40 mg PO HS #30 tabs 02/05/23 07/13/23 Rx montelukast 10 mg tablet 10 mg PO HS #30 tabs 02/05/23 07/13/23 Rx fluticasone propionate 50 2 spray intranasal QAM #16 grams 02/17/23 07/13/23 Rx mcg/actuation nasal spray,suspension (Flonase Allergy Relief) rewashable large blue chux pad #3 ea 02/20/23 07/10/23 Rx polyethylene glycol 3350 17 17 g PO BID #850 grams 03/04/23 07/13/23 Rx gram/dose oral powder multivitamin (Multiple Vitamins 1 tab PO QAM #30 tabs 04/30/23 07/13/23 Rx tablet) compression socks, large #4 ea 05/06/23 07/10/23 Rx benzonatate 200 mg capsule 200 mg PO BID PRN cough #20 caps 05/26/23 07/13/23 Rx neomycin 3.5 mg-polymyxin 10,000 1 drp ophthalmic (eye) BID #7.5 mL 05/26/23 07/13/23 Rx unit-hydrocort 10 mg/mL eye drop,susp testosterone enanthate 200 mg/mL 1,000 mg IM .BIMONTHLY 05/26/23 07/13/23 History intramuscular syringe dextromethorphan polistirex 30 10 ml PO Q12H PRN Cough 06/19/23 07/13/23 History mg/5 mL oral susp ext.release 12hr (Delsym 12 hour) fluoride (sodium) 1.1 % dental gel 1 applic dental DAILY 06/19/23 07/13/23 History hydrocodone 5 mg-acetaminophen 325 1 tab PO Q8H PRN Pain 06/19/23 07/13/23 History mg tablet fexofenadine 180 mg tablet 180 mg PO QAM #30 tabs 06/26/23 07/13/23 Rx Magic Mouthwash 300 mL mouthwash 5 ml mucous membrane .COMPLEX #300 07/10/23 07/13/23 Rx mL amoxicillin 500 mg-potassium 1 tab PO BID #14 tabs 07/10/23 07/13/23 Rx clavulanate 125 mg tablet (Augmentin) magnesium sulfate (bulk) 100 % See Rx Instructions topical BID 07/10/23 07/13/23 Rx crystals (Epsom Salt) #2,500 grams mupirocin 2 % topical ointment 1 applic EXT TID #22 grams 07/14/23 Rx sulfamethoxazole 800 1 tab PO BID #20 tabs 07/14/23 Rx mg-trimethoprim 160 mg tablet (Bactrim DS) Patient History Medical History Colon cancer screening Congenital malformation of eyelid Asthma Vitamin B12 deficiency Adjustment disorder with depressed mood Down syndrome COVID-19 Surgical History History of wisdom tooth extraction No history of previous surgery Family History Other No significant family history Social History Smoking Status: Never smoker Second Hand Exposure: No; Do You Dip or Chew Tobacco: No; Hx Alcohol Use: No Hx Substance Use: No Preferred Language: Wolof Communication Ability: Effective Visual Impairment: No Limitations Hearing Ability: Normal Metal Neutralizer Required: No Beliefs That Will Affect Care: None marital status: Single Current Living Situation: Personal Care Facility Current Living Situation Comment: skills current occupational status: disabled How many Children do You have: 0 Feels Safe at Home: Yes Safety Concerns: Feels Safe At This Time Childhood Exposure to Second-Hand Smoke: No Diet: regular caffeine: Yes Dental Care, Regularly: Yes Physical Activity Frequency: Does not Exercise Seatbelt Use: always Sunscreen Use: Yes Sexual Activity: has never been active Assistive Devices: None Review of Systems Review of Systems: All systems reviewed & are unremarkable except as noted in HPI & below Constitutional: no fever, no chills and no fatigue Eyes: no problem reported Ear, Nose, Mouth, Throat: no problem reported Respiratory: no problem reported Cardiovascular: + edema; no problem reported Gastrointestinal: no nausea, no vomiting and no problem reported Musculoskeletal: no problem reported Integumentary: + non-healing lesions, + wounds, + eryth jordan and + nail changes Neurologic: + loss of sensation, + numbness and + pa resthesia; no generalized weakness Psychiatric: no problem reported Physical Exam Physical Exam: Lower extremity focused exam: DP/PT pulses nonpalpable. CFT is brisk to the digits. Trophic changes are noted throughout the lower extremity, including thinning of the skin, decreased hair growth, nail dystrophy, and diffuse edema. The feet are plantar flexed at the level of the ankle, consistent with a more chronic contracture. Muscle strength is globally decreased. The left hallux nail is recently removed with eschar noted to the nail bed. No ascending cellulitis is noted. No palpable abscess or drainage appreciated. Constitutional: WD/WN, vitals as above + ill appearing and + obese Eyes: PERRL, conjunctivae normal, anicteric sclerae ENMT: external ear and nose normal, oropharynx normal Neck: trachea midline, no thyromegaly normal visual inspection Respiratory: normal respiratory effort; no respiratory distress Cardiovascular: Rate/Rhythm: regular rate and regular rhythm Chest (Breasts): Chest: normal inspection of chest Gastrointestinal (Abdomen): Inspection/Auscultation: abdomen normal to inspection Percussion/Palpation: + abdomen tender and abdomen soft Musculoskeletal: no cyanosis or clubbing, extremities motor strength 5/5 Head/Neck/Chest: normocephalic and head atraumatic Extremities: extremities normal to inspection Skin: + eschar, + nail abnormality and + nails dystrophic Neurologic: awake; no focal motor deficits Psychiatric: A+Ox3, euthymic affect Results & Data Vital Signs (Past 12 Hours) Vital Signs Temp Pulse Resp BP Pulse Ox O2 Del Method 07/14/23 13:55 36.6 C 80 16 145/79 H 99 Room Air 07/14/23 07:17 36.6 C 66 16 145/89 H 94 Room Air Laboratory Results Venous Doppler was performed and rules out any underlying DVT, far as this edema is concerned. Plain film radiographs revealed no significant Osseous involvement to this hallux.
[2023-07-14] MEDS: MUPIROCIN 2% OINT 22 GM TUBE EXT SCH (14:39)
[2023-07-14] MEDS: MONTELUKAST SODIUM 10 MG TABLET PO SCH (20:21)
[2023-07-14] MEDS: ATORVASTATIN 40 MG TAB PO SCH (20:21)
[2023-07-14] MEDS: MIRTAZAPINE TAB 15 MG TAB PO SCH (20:26)
[2023-07-14] MEDS: ARIPiprazole 5 MG TAB PO SCH (20:27)
[2023-07-14] MEDS: MELATONIN 3 MG TAB PO SCH (20:27)
[2023-07-15 06:44] LABS: Basophils # (auto) 0.04 K/uL (0.00-0.20); Basophils % (auto) 0.7 %; Eosinophils % (auto) 1.6 %; Hematocrit (blood only) 46.4 % (42.0-52.0); Hemoglobin 14.7 g/dl (14.0-18.0); Immature Granulocytes # (auto) 0.03 K/uL (0.01-0.20); Immature Granulocytes % (auto) 0.5 %; Lymphocytes # (auto) 1.08 K/uL (1.20-3.40); Lymphocytes % (auto) 17.6 %; Mean Corpuscular Hemoglobin 29.2 pg (25.0-34.0); Mean Corpuscular Hgb Conc 31.7 g/dL (32.0-36.0); Mean Corpuscular Volume 92.1 fL (80.0-100.0); Monocytes # (auto) 0.56 K/uL (0.11-0.59); Monocytes % (auto) 9.1 %; Neutrophils # (auto) 4.33 K/uL (1.40-6.50); Neutrophils % (auto) 70.5 %; Platelet Count 157 K/uL (130-400); RDW Coefficient of Variation 16.3 % (11.5-14.5); RDW Standard Deviation 55.6 fL (36.4-46.3); Red Blood Count 5.04 M/uL (4.70-6.10); White Blood Count 6.14 K/ul (4.8-10.8)
[2023-07-15] MEDS: VANCOMYCIN LEVEL ONE (06:57)
[2023-07-15 07:07] LABS: Albumin Level 3.6 gm/dl (3.4-5.0); BUN Creatinine Ratio 7.1 (10-20); Calcium 8.7 mg/dl (8.6-10.3); Creatinine Clr Calc Pharmacy 76.4 ml/min; Est GFR (African American) 84.7 ml/min; Potassium 4.4 mmol/L (3.5-5.1)
--- NOTE | 2023-07-15 08:03 | Hospitalist Progress Note ---
Date of Service July 15, 2023 Assessment & Plan (1) Cellulitis of left lower extremity: Plan: Infected left great toe nailbed/left foot and lower limb cellulitis- -->Of note, "Nikhil Bonilla reported his socks have been wet for the past week, likely from ongoing drainage s/p Vanco/Cefepime in ER Cx from toe pending from ER - GS with no WBC seen, no organisms seen. Cx pending -- follow Blood cultures pending Continues on Vanco, Cefepime IV. MRSA nares negative Venous doppler NEGATIVE for DVT Xray with soft tissue swelling without acute osseous abnormality Patient did have first toenail removed about a week ago by podiatry/provider in [place] -- see note in system. Redness appears improved, WBC stable and continues on abx as above. Appears infected nail bed likely contributing to the cellulitis and podiatry consult placed while inpatient. Defer additional imaging at this time until eval by podiatry Monitor labs/exam in AM, appreciate assistance/recs from podiatry 07/14 - Podiatry saw, believes no need for surgery/stable since matrixectomy. Recs for topical mupirocin for a week. Also rec for PO abx for 14 day total course, keflex or augmentin. Discussed w/ podiatry and supervising provider given concerns for not covering given came in on Augmentin and therefore suspect would not be sufficient and then keflex wouldn't be ideal. Decision given living environment/improvement w/ MRSA coverage will plan for Bactrim PO to complete course Would recommend checking chemistries in next 2-3 days to ensure renal function/potassium stable. Is not on any potassium supplementation at baseline (2) Infected nailbed of toe: Plan: as above, podiatry consult placed (3) Ingrown left big toenail: Plan: s/p avulsion in the past week in [place] as above (4) Moderate intellectual disabilities: Plan: Moderate intellectual disability/trisomy 21 Down syndrome- Continue usual supportive medications family in room for support, mood appears stable at present time (5) Trisomy 21, Down syndrome: Plan continued inpatient stay, podiatry consulted. continue IV abx/monitor cultures. From [facility] family updated in room/via phone -- brother in law/sister from [facility]. Updated other sister Nuria by phone. discussed if no intervention/further imaging warranted once seen by podiatry if improving on exam in AM could consider dc on PO abx and outpatient follow up Admission and Anticipated Discharge Date Admission Date: July 13, 2023 Results & Data Results & Data Vital Signs (Past 12 Hours) Vital Signs Temp Pulse Resp BP Pulse Ox O2 Del Method 07/15/23 07:49 36.8 C 63 18 130/84 100 Room Air 07/14/23 23:00 36.6 C 61 18 123/81 96 Room Air PG Care Time/CCT Total # of Minutes Spent Total Time Spent with Patient: Total time spent is greater than 50% in coordination of care (as documented) at patient's floor/unit and/or counseling patient: Coding Diagnoses Cellulitis of left lower extremity L03.116 Infection of nail bed of toe of left foot L03.032 Laterality: left Ingrown left big toenail L60.0 Moderate intellectual disabilities F71 Trisomy 21, Down syndrome Q90.9 (2) Infected nailbed of toe Laterality: left Qualified Code(s): L03.032 - Cellulitis of left toe
[2023-07-15] MEDS: SULFAMETHOXAZOLE/TRIMETHOPRIM DS 800/160MG TAB PO SCH (09:27)
--- NOTE | 2023-07-15 10:32 | Discharge Summary ---
Date of Service July 15, 2023 Admission HPI Per Admitting Provider The patient is a 57-year-old male with a past medical history including aspiration, moderate intellectual disability, trisomy 21 Down syndrome, hyperlipidemia, depression with anxiety, lower extremity neuropathy, lower ex tremity edema, lumbar degenerative disc disease, low testosterone and T11 vertebral compression fracture. The patient is brought to the emergency department by his residential housekeeper due to concerns regarding persistent redness and swelling of his left foot. Admission Exam Per Admitting Provider The patient is awake and alert, Down syndrome features, sitting upright in bed and in no acute distress. HEENT--PERRL, EOMI, mucous membranes and oropharynx normal Neck--supple. No JVD. No bruits. Thyroid normal, trachea midline, no adenopathy. Heart--normal S1 and S2. No murmurs, rubs or gallops. Lungs--clear bilaterally, no respiratory distress, no accessory muscle use. Abdomen--normal bowel sounds and soft. Nontender. Nondistended, no hernias or masses, no organomegaly. Extremities--right lower extremity is normal. Left lower extremity with mild to moderate erythema, warmth and swelling involving dorsum of foot and ankle. Left great toe with nail removed and bed infected Dermatologic--normal except for above Neurologic--cranial nerves II through XII grossly intact. Rheumatologic--normal range of motion. Psychiatric--flat affect. Principal Diagnosis Left leg/foot cellulitis, infected nailbed Discharge Exam General 57yo male, intellectual disability/downs at baseline, brother in law in room (sister updated in [place]) HEENT: trachea midline, MM slightly dry Resp: even/unlabored, no w/c/r, on room air CV: RRR, no significant m/r/g, no pitting edema/calf tenderness (see LLE skin exam), pulses present GI: +BS, soft/NT Neuro/psych: alert to person/place, at baseline with family in room cooperative with exam, following commands as able/answering questions appropriately Skin: LLE MUCH IMPROVED REDNESS/ERYTHEMA, NO FURTHER DRAINAGE, less warmth, nontender Discharge Data Allergies Allergy/AdvReac Type Severity Reaction Status Date / Time pollen extracts Allergy Intermediate WATERY Verified 07/13/23 23:37 EYES, CONGESTION amantadine AdvReac Unknown Unknown Verified 07/13/23 23:37 fluoxetine [From Prozac] AdvReac Unknown Unknown Verified 07/13/23 23:37 Consultations 07/13/23 22:47 ED Decision to Admit Stat 07/14/23 09:40 Consult Podiatry Routine Ordered Studies Foot X-Ray 07/13/23 21:47 XR foot LT min 3V routine HISTORY: 57 years-old Male L foot edema, L 1st toe infected acute left foot pain COMPARISON: None TECHNIQUE: 3 views of the left foot FINDINGS: Diffuse soft tissue swelling. No acute fracture, dislocation, or opaque foreign body or osseous erosion. IMPRESSION: Soft tissue swelling without acute osseous abnormality. ACT 112: Negative or not required by law. The above report was generated using voice recognition software. It may contain grammatical, syntax or spelling errors. Electronically signed by: Marco Winter M.D. 07/14/2023 7:27 AM Venous Doppler Study 07/14/23 00:00 LEFT LOWER EXTREMITY VENOUS DOPPLER HISTORY: Acute pain and swelling in the left lower extremity swelling LLE COMPARISON STUDY: None. FINDINGS: There is normal compressibility, flow, and augmentation within the left lower extremity deep venous system. Subcutaneous edema limits evaluation of the lower leg veins. Nonspecific inguinal chain lymph nodes measure up to 3.8 x 1.1 x 2.7 cm. This is likely benign. IMPRESSION: No DVT within the left lower extremity. ACT 112: Negative or not required by law. Electronically signed by: Marco Winter M.D. 07/14/2023 9:08 AM Hospital Course (1) Cellulitis of left lower extremity: Infected left great toe nailbed/left foot and lower limb cellulitis- -->Of note, "Ady" Chad reported his socks have been wet for the past week, likely from ongoing drainage. He did have recent phenol matrixectomy about 1 week prior and was on PO Augmentin on [employer] s/p Vanco/Cefepime in ER Cx from toe pending from ER-- GS no org seen, no WBC. No growth on preliminary culture Blood cultures remain NGTD Venous doppler NEGATIVE for DVT Xray obtained w/ soft tissue swelling without acute osseous abn WBC remained stable on repeat, afebrile On exam 07/14, erythema MUCH improved, no further pain Podiatry consulted, no intervention planned and recs for topical mupirocin and PO abx for 2 weeks with outpatient follow up. --> Also rec for PO abx for 14 day total course, keflex or augmentin. Discussed w/ podiatry and supervising provider given concerns for not covering given came in on Augmentin and therefore suspect would not be sufficient and then keflex wouldn't be ideal. Decision given living environment/improvement w/ MRSA coverage will plan for Bactrim PO to complete course along with topical mupirocin to the toenail Would recommend checking chemistries in next 2-3 days to ensure renal function/potassium stable. Is not on any potassium supplementation at baseline (2) Infected nailbed of toe: as above, continued topical/po abx at discharge and should have outpt f/u podiatry (3) Ingrown left big toenail: s/p avulsion in the past week in [place] as above (4) Moderate intellectual disabilities: Moderate intellectual disability/trisomy 21 Down syndrome- Continued usual supportive medications family in room for support, mood appears stable at present time and very cooperative/conversive during encounters/pleasant (5) Trisomy 21, Down syndrome: Plan discharged on continued po/topical abx as outlined above and should have podiatry follow up outpatient recs for continued loose fitting shoes/not tight, elevation as much as tolerated and can consider f/u imaging for arterial studies however pulses present/cap refill wnl Total Time Total Time Spent Total Time Spent (In Minutes): 40 Discharge Plan Discharge Items Patient Disposition: Home - Self-Care Reason For Visit: LLE CELLULITIS Discharge Diagnosis: Left leg/foot cellulitis Goals: You have been hospitalized for an acute medical problem. During your stay at [facility], we have made an effort to correct the problem that brought you to the hospital while keeping you as comfortable as possible. Medications were used to bring your condition under control and your discharge instructions will include directions for any medications you should take after leaving the hospital. Please make sure you see your Primary Care Provider as part of your follow up plan. Activity: As commented below Activity Comment: wear loose fitting shoes Non-emergency contact: Primary Care Provider Call non-emergency contact if: you have any medication questions, your symptoms worsen and your pain is not controlled Follow-up/Referrals: Valerie Coats CRNP [Primary Care Provider] - 07/20/23 10:30 am [facility] DPM [Outside Practitioners] - 07/17/23 2:15 pm (Appointment will be with ) Diet: Heart Healthy Diet Texture: Easy to Chew Diet Comment: minced/moist, easy to chew Ambulatory Orders: Basic Metabolic Panel (Routine) Timeframe: 2 Days Location: Determined by Patient Ordered By: Marielos Newberry Attending Provider Instructions: You have been hospitalized for concerns of infection to the toenail along with cellulitis. You were treated with IV antibiotics and podiatry was consulted and did not feel needing any surgical intervention and recommend continuing topical antibiotics but also oral antibiotics for the cellulitis. Oral antibiotics should be for 2 weeks with close follow up with podiatry as outpatient in the next 2 weeks. You are being sent home on oral antibiotic called BACTRIM. This should be taken one tablet by mouth twice daily for a total of 14 days and you have another 12 days of treatment left. We recommend having repeat labs in the next 2-3 days to ensure kidney function and electrolytes remain stable on antibiotics. You should continue topical mupirocin to the toenail three times daily for the next week. Please continue loose fitting shoes. Monitor for any significant increase in diarrhea/alert primary care if this occurs. You should follow up with primary care in the next 7-10 days after discharge as well to monitor your progress since hospitalization. You may benefit from further evaluation of underlying arterial disease if slow to heal in follow up. Please return to the ER with any worsening redness, pain, drainage, fever/chills or for any other symptoms concerning for you. It has been a pleasure being a part of the medical team providing for you while you have been in the hospital. Take care! Pending Studies at Discharge: Yes Studies:: Blood cultures - no growth to date Foot culture -- no growth to date on preliminary Stand-Alone Forms: [facility] [place] Vaccinogen, Smoking Cessation Medications and DC Order Prescriptions: New mupirocin 2 % Ointment 1 applic EXT TID Qty: 22 0RF sulfamethoxazole-trimethoprim [Bactrim DS] 800-160 mg tablet 1 tab PO BID Qty: 20 0RF Continued mineral oil Oil See Rx Instructions miscellaneous .COMPLEX Qty: 1 1RF Rx Instructions: 2 gtt mineral oil into each ear canal once monthly. sennosides [Senokot] 8.6 mg tablet 8.6 mg PO HS PRN (Reason: constipation) Qty: 20 11RF atorvastatin 40 mg tablet 40 mg PO HS Qty: 30 11RF Rx Instructions: TAKE ONE TABLET BY MOUTH AT 8PM *CHOLESTEROL* montelukast 10 mg tablet 10 mg PO HS Qty: 30 11RF fluticasone propionate [Flonase Allergy Relief] 50 mcg/actuation spray,suspension 2 spray INTNAS QAM Qty: 16 11RF Rx Instructions: administer into each nostril polyethylene glycol 3350 17 gram/dose powder 17 g PO BID Qty: 850 11RF multivitamin [Multiple Vitamins] Tablet 1 tab PO QAM Qty: 30 11RF fexofenadine 180 mg tablet 180 mg PO QAM Qty: 30 11RF ciclopirox 0.77 % cream 1 applic topical BID PRN (Reason: rash) Qty: 90 5RF cyanocobalamin (vitamin B-12) 500 mcg tablet 500 mcg PO QAM Qty: 30 5RF docusate sodium [Colace] 100 mg capsule 100 mg PO BID PRN (Reason: constipation) Qty: 30 3RF magnesium hydroxide [Milk of Magnesia] 400 mg/5 mL suspension 30 ml PO .COMPLEX PRN (Reason: constipation) Qty: 118 3RF Rx Instructions: 30 mL PO every 3rd day as needed if no bowel movment PRN; Saline Nasal Mist 0.65 % aerosol,spray 2 spray intranasal Q4H PRN (Reason: dry nasal passages) Qty: 44 11RF ibuprofen [IBU-200] 200 mg tablet 400 mg PO Q8H PRN (Reason: pain) 5 Days Qty: 20 4RF Rx Instructions: with food loperamide [Anti-Diarrheal (loperamide)] 2 mg capsule 2 mg PO Q6H PRN (Reason: Diarrhea) ketoconazole 2 % shampoo 1 applic topical DIRECTED PRN (Reason: NEEDED) Eucerin Cream 1 applic topical DAILY OcuSoft Lid Scrub Pads, Medicated 1 pad topical DIRECTED Antacid Calcium 215 mg calcium (500 mg) tablet,chewable 215 mg PO BID Qty: 60 3RF Eucerin Advanced Repair Hand Cream 1 applic topical DAILY PRN (Reason: Itching) cholecalciferol (vitamin D3) 125 mcg (5,000 unit) capsule 125 mcg PO DAILY Qty: 90 3RF fluoride (sodium) 1.1 % gel 1 applic dental DAILY dextromethorphan polistirex [Delsym 12 hour] 30 mg/5 mL suspension,extended rel 12 hr 10 ml PO Q12H PRN (Reason: Cough) hydrocodone-acetaminophen 5-325 mg tablet 1 tab PO Q8H PRN (Reason: Pain) testosterone enanthate 200 mg/mL syringe 1,000 mg IM .BIMONTHLY Rx Instructions: Take twice monthly. lfdocxon-yptufxauj-JN 3.5-10,000-10 mg-unit-mg/mL drops,suspension 1 drp ophthalmic (eye) BID Qty: 7.5 1RF Rx Instructions: 1 drop both eyes twice a day for 5 days then 1 gtt both eyes at bedtime daily benzonatate 200 mg capsule 200 mg PO BID PRN (Reason: cough) Qty: 20 0RF Rx Instructions: give one in am if needed, but offer one at bedtime for 5 nights help with cough, then as needed. magnesium sulfate (bulk) [Epsom Salt] 100 % crystals See Rx Instructions topical BID Qty: 2500 0RF Rx Instructions: soak L foot for 20 min twice daily till nailbed healed Magic Mouthwash 300 mL mouthwash 5 ml mucous membrane .COMPLEX Qty: 300 0RF Rx Instructions: 5 mL to affected mucosal area twice daily for 5 days- swish and spit; Benadryl 12.5 mg/5 mL oral elixir; Maalox 200 mg-200 mg-20 mg/5 mL oral suspension; Xylocaine Viscous 2 % mucosal solution;[Generic substitution ok] 1:1:1 compound Per 300 mL sertraline 100 mg tablet 100 mg PO QAM aripiprazole [Abilify] 5 mg tablet 5 mg PO PM mirtazapine 15 mg tablet 15 mg PO HS Rx Instructions: take before bed melatonin 3 mg Tablet 6 mg PO HS alum-mag hydroxide-simeth 200-200-20 mg/5 mL Suspension 30 ml PO Q4 MDD 4 PRN (Reason: antiemetic) acetaminophen [Tylenol] 325 mg tablet 650 mg PO PRN PRN (Reason: pain) Debrox 6.5 % drops 3 drops OTB 3XWK Discontinued vitamin A and D Ointment 1 applic topical PRN PRN (Reason: Rash) amoxicillin-pot clavulanate [Augmentin] 500-125 mg tablet 1 tab PO BID Qty: 14 0RF Rx Instructions: STARTED 07/10/23 FOR 7 DAYS No Action (DME) walker with hand brakes and a seat See Rx Instructions .Route .MEDSUPPLY Qty: 1 0RF Rx Instructions: As directed (DME) rewashable large blue chux pad See Rx Instructions .Route .MEDSUPPLY Qty: 3 5RF Rx Instructions: As directed (DME) compression socks, large Misc See Rx Instructions .Route Qty: 4 5RF Rx Instructions: As directed Discharge Orders: Discharge Order (Routine); Ordered 07/15/23 Ordered By: Marielos Vasquez Admission Data Admit Date/Time: 07/13/23 23:32 Attending Provider: Robles Salvador Admit Provider: Chapo De La Cruz Primary Care Provider: Valerie Coats Other Providers: Chapo De La Cruz; Rafat Aguirre Other Interventions: Discharge Summary Assessment (RN) Last Done: 07/15/23 10:46 Supervising Physician Co-Signing Physician Notes The patient was not seen by me. The chart was reviewed. Case discussed with BRI Martinez. Agree with assessment and plan. The patient is medically stable for discharge today, July 14 Coding Level of Care Code 15363 INP/OBS DISCH >30 MIN Diagnoses Cellulitis of left lower extremity L03.116 Infection of nail bed of toe of left foot L03.032 Laterality: left Ingrown left big toenail L60.0 Moderate intellectual disabilities F71 Trisomy 21, Down syndrome Q90.9
== END 2023-07-15 11:48 | disposition home or self-care (01) | DRG 603 ==
LOC: ED 20:43 → SUATTDRO 23:32 → 3E 23:32